=== PATIENT | male | born 1965 | race Caucasian/White ===

== ENCOUNTER 2018-04-29 21:03 | Emergency (ER) | payer OTHER, SELFPAY ==
[2018-04-29 21:10] VITALS: BP 124/76; PULSE 95; RESP 18; TEMP 37.1; O2SAT 96
--- NOTE | 2018-04-29 21:10 | W.ED.GENAD ---
Discharge Plan Disposition Patient Disposition: HOME Condition: Good Discharge Details Chief Complaint: Cellulitis Clinical Impression: Sallie-rectal abscess Primary Care Provider: Osman Gutierrez ED Provider: Pedro Wakefield Meds and New Rx's Prescriptions: New ibuprofen 600 mg tablet 600 mg PO QID PRN (Reason: pain) Qty: 20 RF: 0 amoxicillin-pot clavulanate 875-125 mg tablet 1 tab PO BID Qty: 14 RF: 0 Continue infliximab [Remicade] 100 mg Recon Soln 500 ml IV [id number] RF: 0 Discharge Instructions Instructions: Abscess (ED) Additional Instructions: You may remove the packing tomorrow night in the shower. Take Augmentin as directed. Motrin for pain if needed. May also use Tylenol. Follow-up with Dr. Parker on Tuesday, call Tuesday for appointment. Return to emergency department for worsening pain, swelling, abdominal pain, fever. Referrals: Bear Parker DO [ [facility] STAFF PHYSICIAN] - Medical Decision Making Patient here with 2 days of fever, perirectal pain, perirectal drainage with history of Crohn's and perirectal abscess. Has evidence of large left sided perirectal abscess with possible extension into the anterior medial perineum upper thigh. Digital rectal exam not performed because of discomfort. Abdomen is benign. IV established and fluids and antibiotics started. Declines anything for pain currently. Laboratory studies and CT scan ordered. Patient has a white count of 14.5. Otherwise labs are unremarkable. CT scan shows a large superficial perirectal abscess. Case discussed with Dr. Parker who will see the patient in the ED. Abscess opened in the ED by surgery, Dr. Parker. Packing placed. Patient instructed to take packing out tomorrow night in the shower. Will be started on Augmentin twice a day for a week. Home and follow-up with surgery on Tuesday. Return to ED for any increasing pain, swelling, fever, other concerns. Imaging Data Radiologic Study: Imaging: CT Scan Radiologist's impression: Patient Name: RAMÓN SIERRA #: [id number]: ER Ordering Provider: : [facility] ER Primary Care Provider: Osman Gutierrez Date of Exam: 04/29/18ex: M : 1965Age: 53 Exam(s) EXAM: CT Abdomen and Pelvis With Intravenous Contrast EXAM DATE/TIME: 04/29/2018 9:37 PM CLINICAL HISTORY: 53 years old, male; Screening exam; Other: Evaluate extent of perirectal abscess TECHNIQUE: Axial computed tomography images of the abdomen and pelvis with intravenous contrast. Coronal and sagittal reformatted images were created and reviewed. COMPARISON: No relevant prior studies available. FINDINGS: Lower thorax: Minimal dependent atelectasis. ABDOMEN: Liver: Unremarkable. No acute findings. No suspicious lesions. Gallbladder and bile ducts: Unremarkable. No calcified stones. No concerning ductal dilation. Pancreas: Unremarkable. No ductal dilation. Spleen: Unremarkable. No splenomegaly. No suspicious lesions. Adrenals: Unremarkalbe. No suspicious mass. Kidneys and ureters: 2 mm nonobstructing right renal calculus. Stomach and bowel: Unremarkable. No obstruction or inflammatory changes. Appendix: No evidence of appendicitis. PELVIS: Bladder: Unremarkable as visualized. Reproductive: Unremarkable as visualized. Subperitoneal space: Left perirectal abscess measures 11 x 35 mm transversely. It stays very superficial in the subcutaneous fatty tissues. ABDOMEN and PELVIS: Intraperitoneal space: No free air. No significant fluid collection. Bones/joints: No acute fracture. No dislocation. Soft tissues: Small fat containing umbilical hernia. Vasculature: Unremarkable. No acute findings Lymph nodes: Unremarkable. IMPRESSION: Small left perirectal abscess located just beneath the skin surface. No evidence of any deep extension. Dictated and Authenticated by: Rafi Troncoso MD. Ordering:JOSE HARDING MD Lab Data Lab results reviewed: Yes I reviewed the patient's lab results. HPI General Mode of arrival: ambulatory. Date/Time Provider Initiated Documentation: 04/29/18 21:07. Limitations to Documentation: no limitations. Information obtained by: patient. HPI Narrative: Patient presents to ED with fever and perirectal pain. Patient has history of Crohn's disease with multiple surgeries for perirectal abscess. He started having pain and fever with sweats over the last 2 days. He started to have drainage from the rectal area. He denies any abdominal pain, nausea, vomiting, diarrhea. He is only on Remicade and was due for next dose this coming week. He has waited too long in the past and required multiple surgeries to correct the problem. He decided not to wait this time and came in. Related Data Home Medications Medication Instructions Recorded Confirmed infliximab [Remicade] 500 ml IV [id number] 04/29/18 04/29/18 amoxicillin-pot clavulanate 1 tab PO BID #14 tab 04/30/18 ibuprofen 600 mg PO QID PRN #20 tab 04/30/18 Previous Rx's Medication Instructions Recorded amoxicillin-pot clavulanate 1 tab PO BID #14 tab 04/30/18 ibuprofen 600 mg PO QID PRN #20 tab 04/30/18 Allergies Allergy/AdvReac Type Severity Reaction Status Date / Time No Known Allergies Allergy Unverified 04/29/18 21:21 Review of Systems Constitutional Denies chills, Reports excessive sweating, Denies fatigue, Reports fever(s), Denies headache(s), Denies malaise and Denies weakness Eyes Denies eye discharge and Denies eye pain ENT Denies otalgia, Denies headache(s), Denies neck pain, Denies sinus pressure and Denies sore throat Cardiovascular Denies chest pain, Denies lightheadedness and Denies dyspnea Respiratory Denies cough and Denies dyspnea Gastrointestinal Denies abdominal pain, Denies diarrhea, Denies nausea and Denies vomiting Genitourinary Denies hematuria, Denies dysuria and Denies flank pain Musculoskeletal Denies back pain, Denies myalgias, Denies arthralgias, Denies neck pain and Denies numbness Integumentary/Breasts Denies rash and Reports wounds Neurologic Denies confusion, Denies headache(s), Denies focal weakness, Denies numbness and Denies weakness Psychiatric Denies confusion Endocrine Reports excessive sweating and Denies fatigue PFSH Crohn's disease (regional enteritis) (Chronic) Sallie-rectal abscess (Chronic) H/O drainage of abscess (Chronic) Medical History Crohn's disease (regional enteritis) (Chronic) Sallie-rectal abscess (Chronic) Social History Smoking/Tobacco Use Status: Current every day Surgical History H/O drainage of abscess (Chronic) Social History Smoking/Tobacco Use Status: Current every day Exam Const General: cooperative, healthy appearing, comfortable and not diaphoretic Orientation: alert and oriented x3 HENMT Head: normocephalic and atraumatic Mouth: moist mucous membranes Neck Neck: normal visual inspection, trachea midline and supple Resp Effort & Inspection: normal respiratory effort Auscultation: clear to auscultation bilaterally Cardio Rate: regular rate Rhythm: regular rhythm Heart Sounds: S1 normal and S2 normal GI Inspection: normal to inspection Palpation: soft, not firm, no guarding and nontender Rectal Exam: other (Large left sallie-rectal fluctuant/tender mass, + drainage. Smaller bilateral upper medial thigh/perineal masses/drainage.) Back/Spine/Pelvis Thoracic/Lumbar Spine: thoracic and lumbar spine normal to inspection and thoraco-lumbar ROM normal Skin General skin exam: no erythema Wounds: wounds noted (sallie-rectal drainage/wounds) Neuro General: alert, oriented x3, no focal motor deficits and CN's II-XI intact bilaterally Extrem General: normal to inspection and no clubbing, cyanosis or edema
--- NOTE | 2018-04-29 21:33 | DI.CT_ITS ---
SYMPTOM/DIAGNOSIS: ? EXTENT OF PERIRECTAL ABSCESS ABDOMEN AND PELVIC CT: CT scan of the abdomen and pelvis was performed following the uneventful administration of intravenous contrast material. There are no priors for comparison. Mild dependent atelectatic changes or scarring are seen in the lung bases. No hepatic mass is seen. The gallbladder is negative by CT criteria. There is no biliary ductal dilatation. The portal and superior mesenteric veins are patent. The pancreas, spleen and adrenal glands are unremarkable. The kidneys show normal and symmetric enhancement. No evidence of a solid renal mass or obstruction. There is a 3 mm. non obstructing stone in the mid pole of the right kidney. The urinary bladder is intact. The reproductive organs are unremarkable. The bowel shows no evidence of obstruction or inflammation. No findings to suggest an acute appendicitis are present. The abdominal aorta is of normal caliber. No significant abdominal or pelvic adenopathy, ascites or pneumoperitoneum is seen. Note is made of a small fat containing umbilical hernia. There is a subcutaneous fluid collection in the left perirectal region measuring 1.1 by 3.5 cm. consistent with an abscess. It remains in the superficial soft tissues. Degenerative changes are seen in the spine. IMPRESSION: Small superficial left perirectal abscess. No evidence of deep extension.
[2018-04-29] MEDS: PIPERACILLIN/TAZO 3.375 GM in Normal Saline 50 ML IVPB (21:56)
[2018-04-29] MEDS: Normal Saline Flush 10 ML SYR IVP (21:57)
[2018-04-29 22:09] LABS: Abs Immature Grans 0.04 k/cumm (0.0-0.09); Absolute Basophil Count 0.03 k/cumm (0.0-0.2); Absolute Lymphocyte Count 2.94 k/cumm (1.2-3.4); Absolute Monocyte Count 1.74 k/cumm (0.11-0.7); Basophils % 0.2; Eosinophils % 0.3; HCT 40.9 % (40.0-50.0); HGB 13.8 g/dL (13.5-17.5); Immature Grans % 0.3; Lymphocytes % 20.3; Mean Corp. HGB Concentration 33.7 g/dL (32.0-36.0); Mean Corpuscular Hemoglobin 32.6 pg (27.0-33.0); Mean Corpuscular Volume 96.7 fL (80-95); Mean Platelet Volume 10.2 fL (8.0-11.0); Neutrophils % 66.9; Platelet Count 209 x1000/uL (130-400); RBC 4.23 m/cumm (4.50-6.00); RBC Distribution Width 12.4 % (11.8-14.1); White Blood Cell Count 14.47 k/cumm (4.4-10.8)
[2018-04-29 22:18] LABS: ALT 21 U/L (12-78); AST 14 U/L (15-37); Albumin 3.3 g/dL (3.4-5.0); Alkaline Phosphatase 65 U/L (46-116); Anion Gap 6.8 mmol/L (3-11); BUN 14 mg/dL (7-18); Bilirubin, Total 0.4 mg/dL (0.2-1.0); CO2 27.2 mmol/L (21.0-32.0); CREATININE 0.93 mg/dL (0.70-1.30); Calcium 8.7 mg/dL (8.5-10.1); Chloride 104 mmol/L (98-107); Glucose 113 mg/dL (70-100); Potassium 4.6 mmol/L (3.5-5.1); Sodium 138 mmol/L (136-145); Total Protein 7.6 g/dL (6.4-8.2)
[2018-04-29 22:19] LABS: Absolute Eosinophil Count 0.04 k/cumm (0.0-0.7); Absolute Neutrophil Count 9.68 k/cumm (1.2-6.7)
[2018-04-29] MEDS: Omnipaque 350 MG/ML 100 ML BTL IJ (22:41)
[2018-04-29] MEDS: Lactated Ringers 1,000 ML 150 ML IV (22:46)
--- NOTE | 2018-04-29 23:20 | DI.VRAD_ITS ---
EXAM: CT Abdomen and Pelvis With Intravenous Contrast EXAM DATE/TIME: 04/29/2018 9:37 PM CLINICAL HISTORY: 53 years old, male; Screening exam; Other: Evaluate extent of perirectal abscess TECHNIQUE: Axial computed tomography images of the abdomen and pelvis with intravenous contrast. Coronal and sagittal reformatted images were created and reviewed. COMPARISON: No relevant prior studies available. FINDINGS: Lower thorax: Minimal dependent atelectasis. ABDOMEN: Liver: Unremarkable. No acute findings. No suspicious lesions. Gallbladder and bile ducts: Unremarkable. No calcified stones. No concerning ductal dilation. Pancreas: Unremarkable. No ductal dilation. Spleen: Unremarkable. No splenomegaly. No suspicious lesions. Adrenals: Unremarkalbe. No suspicious mass. Kidneys and ureters: 2 mm nonobstructing right renal calculus. Stomach and bowel: Unremarkable. No obstruction or inflammatory changes. Appendix: No evidence of appendicitis. PELVIS: Bladder: Unremarkable as visualized. Reproductive: Unremarkable as visualized. Subperitoneal space: Left perirectal abscess measures 11 x 35 mm transversely. It stays very superficial in the subcutaneous fatty tissues. ABDOMEN and PELVIS: Intraperitoneal space: No free air. No significant fluid collection. Bones/joints: No acute fracture. No dislocation. Soft tissues: Small fat containing umbilical hernia. Vasculature: Unremarkable. No acute findings Lymph nodes: Unremarkable. IMPRESSION: Small left perirectal abscess located just beneath the skin surface. No evidence of any deep extension. Dictated and Authenticated by: Rafi Troncoso MD. Ordering:JOSE HARDING MD
--- NOTE | 2018-04-30 01:41 | SCONE_ITS ---
Date of service: 04/30/18 Time of Service: 01:34 Assessment and Plan (1) Abscess and cellulitis of gluteal region: Current visit: Yes Status: Acute Recommended incision and drainage of left gluteal abscess under local. Verbal consent was obtained and I&D was performed see procedure note for full details. We will see patient in follow-up. He will finish a course of Augmentin while awaiting culture results for susceptibility. History of Present Illness Narrative: 53-year-old male presents to the emergency room with perianal pain consistent with a perianal abscess. He has a history of Crohn's, and has had multiple perianal abscesses in the past. He started on Remicade about 3 years ago, and this is the first abscesses develop since starting Remicade. CT of the pelvis showed a relatively superficial abscess which is consistent with physical exam. Surgery was consulted for I&D of the abscess. Consults Consult date: 04/30/18 Review of Systems Constitutional Reports system reviewed and no additional complaints, except as docu, Denies chills, Reports fatigue, Reports fever(s) and Reports malaise Gastrointestinal Denies melena, Denies constipation, Denies fecal incontinence, Denies loose stools, Denies nausea and Denies vomiting Endocrine Reports fatigue PFSH Crohn's disease (regional enteritis) (Chronic) Sallie-rectal abscess (Chronic) H/O drainage of abscess (Chronic) Medical History Crohn's disease (regional enteritis) (Chronic) Sallie-rectal abscess (Chronic) Social History Smoking/Tobacco Use Status: Current every day tobacco type: cigarettes alcohol intake: current alcohol intake frequency: a few times a week Alcohol type: beer and hard liquor substance use type: does not use Surgical History H/O drainage of abscess (Chronic) Social History Smoking/Tobacco Use Status: Current every day tobacco type: cigarettes alcohol intake: current alcohol intake frequency: a few times a week Alcohol type: beer and hard liquor substance use type: does not use Exam Const General: cooperative, acute distress mild and anxious Nutritional Appearance: average body habitus and well nourished Orientation: alert, awake and oriented x3 Chest Chest: normal inspection of the chest Resp Effort & Inspection: normal respiratory effort and able to speak in complete sentences Auscultation: clear to auscultation bilaterally Cardio Jugular venous pressure: no JVD Rate: regular rate Rhythm: regular rhythm Heart Sounds: S1 normal and S2 normal GI Inspection: normal to inspection and non-distended Palpation: soft and nontender Rectal Exam: visual inspection abnormal other (erythema, induration, and fluctuance of the left buttock. Tender to palpation) Skin Lesions: lesion noted (Left buttock as described above) Neuro General: moves all extremities, no focal motor deficits and CN's II-XI intact bilaterally Extrem General: normal capillary refill and no clubbing, cyanosis or edema Psych Appearance: grossly normal Mental Status: mental status grossly normal Judgment: judgment good Results Last Vital Signs Temp 37.1 C 04/29/18 21:10 Pulse 95 H 04/29/18 21:10 Resp 18 04/29/18 21:10 BP 124/76 04/29/18 21:10 Pulse Ox 96 04/29/18 21:10 Labs : 04/29/18 21:50 04/29/18 21:50 Laboratory Results - last 24 hr 04/29/18 04/29/18 21:50 21:50 WBC 14.47 H RBC 4.23 L Hgb 13.8 Hct 40.9 MCV 96.7 H MCH 32.6 MCHC 33.7 RDW 12.4 Plt Count 209 MPV 10.2 Immature Gran % 0.3 Neutrophils % 66.9 Lymphocytes % 20.3 Monocytes % 12.0 Eosinophils % 0.3 Basophils % 0.2 Absolute Neutrophils 9.68 H Absolute Lymphocytes 2.94 Absolute Monocytes 1.74 H Absolute Eosinophils 0.04 Absolute Basophils 0.03 Sodium 138 Potassium 4.6 Chloride 104 Carbon Dioxide 27.2 Anion Gap 6.8 BUN 14 Creatinine 0.93 Estimated GFR/1.73 m2 >= 60.00 Glucose 113 H Calcium 8.7 Total Bilirubin 0.4 AST 14 L ALT 21 Alkaline Phosphatase 65 Total Protein 7.6 Albumin 3.[address] scan - pelvis: image reviewed Imaging Studies: CT Abdomen and Pelvis With Intravenous Contrast EXAM DATE/TIME: 04/29/2018 9:37 PM CLINICAL HISTORY: 53 years old, male; Screening exam; Other: Evaluate extent of perirectal abscess TECHNIQUE: Axial computed tomography images of the abdomen and pelvis with intravenous contrast. Coronal and sagittal reformatted images were created and reviewed. COMPARISON: No relevant prior studies available. FINDINGS: Lower thorax: Minimal dependent atelectasis. ABDOMEN: Liver: Unremarkable. No acute findings. No suspicious lesions. Gallbladder and bile ducts: Unremarkable. No calcified stones. No concerning ductal dilation. Pancreas: Unremarkable. No ductal dilation. Spleen: Unremarkable. No splenomegaly. No suspicious lesions. Adrenals: Unremarkalbe. No suspicious mass. Kidneys and ureters: 2 mm nonobstructing right renal calculus. Stomach and bowel: Unremarkable. No obstruction or inflammatory changes. Appendix: No evidence of appendicitis. PELVIS: Bladder: Unremarkable as visualized. Reproductive: Unremarkable as visualized. Subperitoneal space: Left perirectal abscess measures 11 x 35 mm transversely. It stays very superficial in the subcutaneous fatty tissues. ABDOMEN and PELVIS: Intraperitoneal space: No free air. No significant fluid collection. Bones/joints: No acute fracture. No dislocation. Soft tissues: Small fat containing umbilical hernia. Vasculature: Unremarkable. No acute findings Lymph nodes: Unremarkable. IMPRESSION: Small left perirectal abscess located just beneath the skin surface. No evidence of any deep extension. Procedures Other Procedure Description/Findings: Preoperative diagnosis: Perianal abscess Postoperative diagnosis: Left gluteal abscess Procedure: Incision and drainage of left gluteal abscess Surgeon: Bear Kay DO Anesthesia: Local 1% lidocaine Estimated blood loss: 1 ml Specimen: Culture swabs left gluteal abscess Procedure: After obtaining verbal consent, the area was prepped, and a field block of 1% lidocaine was infiltrated over the center of the abscess at the most fluctuant point. A 2 cm stab incision was made in the area of fluctuance. Immediate outpouring of purulent fluid was noted, gentle pressure was applied to express more purulent fluid. A total of about 100-120 mL was drained from the wound. A short wick of quarter inch iodoform gauze was placed in the wound , and this was covered with dry sterile dressings. The patient tolerated the procedure with some mild discomfort, but overall did well. There are no complications.
[2018-04-30] MEDS: Ketorolac 30 MG/ML VIAL IVP (01:48)
[2018-04-30] MEDS: Normal Saline Flush 10 ML SYR IVP (01:49)
[2018-04-30 01:57] VITALS: BP 124/76; PULSE 95; RESP 18; O2SAT 96
== END 2018-04-30 01:56 | disposition home or self-care (01) ==
PROVIDERS: Emergency Provider Emergency Medicine
DX: K61.1 Rectal abscess (principal); K50.90 Crohn's disease, unspecified, without complications; L02.31 Cutaneous abscess of buttock
CPT/HCPCS: 10061; 36415; 80053; 96361; 96365; 96375; 99253; 99285; 74177; 85025; 99284; J1885; J2543; J3490

== ENCOUNTER 2019-12-20 21:59 | Inpatient (IN) | payer OTHER, SELFPAY ==
[2019-12-20 22:01] VITALS: BP 156/92; PULSE 87; RESP 20; TEMP 36.9; O2SAT 97
--- NOTE | 2019-12-20 22:12 | ED.GENADUL_ITS ---
Discharge Plan Disposition Patient Disposition: [facility] INPATIENT Condition: Fair Discharge Details Chief Complaint: Cellulitis Clinical Impression: Abscess and cellulitis of gluteal region Primary Care Provider: Rafat Tellez ED Provider: Pedro Wakefield Meds and New Rx's Prescriptions: No Action ibuprofen 600 mg tablet 600 mg PO QID PRN (Reason: pain) Qty: 20 RF: 0 Medical Decision Making Patient with recurrent perirectal abscess. He also has tenderness, erythema extending in the perineal area to the base of the scrotum. Does not appear to have scrotal involvement. Previous abscess was drained in ED in 2018. However, next day patient ended up going to the OR at [facility] for extensive I&D. Given the amount of scar tissue present, the long history of abscesses and fistulous, as well as extension of erythema and tenderness towards the base of the scrotum will get pelvic CT with IV contrast. IV established laboratory studies sent. Toradol and Unasyn given. Patient with elevated WBC to 13.9. Chemistries are fine. Urinalysis with moderate blood and small leukocyte esterase on dip, 5-10 white cells and 5-[address] scan shows a 10.6 x 1.1 cm elongated fluid collection along the right perirectal/gluteal region. Case discussed with surgery, Dr. Livingston. Recommend patient be transferred to [facility]. Patient declines and wishes to stay here. No beds available tonight but patient will be held in ED and kept n.p.o. with fluids running. Unasyn 3 g IV every [address] Livingston to see in ED in morning for plan to go to the OR. Medical Records Medical records reviewed: Yes I reviewed the patient's medical records. Lab Data Lab results reviewed: Yes I reviewed the patient's lab results. HPI General Mode of arrival: ambulatory . Date/Time Provider Initiated Documentation: 12/20/19 22:02 . Limitations to Documentation: no limitations . Information obtained by: patient, RN notes reviewed and old records reviewed . HPI Narrative: Patient presents to ED with perirectal pain and swelling. Has a long history of perirectal and perianal abscesses secondary to Crohn's disease. Last 1 requiring drainage eventually in the OR was April 2018. He is now off Remicade for the last 6 months. 2 days ago began to have pain. Now unable to sit or even really walk. Having sweats but not sure if he is having fevers. No shaking chills. No abdominal pain. No difficulty urinating or complaints. Related Data Home Medications Medication Instructions Recorded Confirmed ibuprofen 600 mg PO QID PRN #20 tab 04/30/18 12/20/19 Previous Rx's Medication Instructions Recorded ibuprofen 600 mg PO QID PRN #20 tab 04/30/18 Allergies Allergy/AdvReac Type Severity Reaction Status Date / Time No Known Allergies Allergy Unverified 12/20/19 22:05 General Stated Complaint: Cellulitis FLORA: 3 Review of Systems Narrative: 03/12 Review of Systems completed and is negative except as stated above in HPI (Systems reviewed: Const, Eyes, ENT, Resp, CV, GI, , MSK, Skin, Neuro) PFSH Medical History Crohn's disease (regional enteritis) (Chronic) Sallie-rectal abscess (Chronic) Surgical History H/O drainage of abscess (Chronic) Social History Smoking/Tobacco Use Status: Current every day Tobacco Type: cigarettes Smoking packs per day: 1 Smoking cigarettes per day: 20.0 Alcohol Intake: current Alcohol Intake frequency: a few times a week Alcohol type: beer and hard liquor Drug use: Never Substance use type: does not use Do you feel safe in your relationship?: Yes Exam Narrative Exam Narrative: Vitals: Afebrile here. Hypertensive otherwise normal vitals normal room air p ulse ox. Const: WDWN male in NAD. HEENT: NC/AT. Normal facial exam. Eyes: Normal conjunctiva and sclera. Neck: Supple. Trachea midline. Lungs: Normal respiratory effort. Cor: RRR with good radial pulses. GI: Soft. NT/ND. No guarding or rebound. : Significant scar tissue in the perirectal and perineal area. Swelling, tenderness, fluctuance in the right perirectal region with erythema and tenderness extending up to the scrotum. No scrotal erythema or tenderness. Small opening with slight drainage in the perirectal area. Neuro: A+O x 3. Normal speech, mentation, gait. Cranial nerves II - XII grossly intact. No gross motor or sensory deficit. Ext: No C/C/E. Skin: Warm and dry without rash. Course Vital Signs Vital signs: Vital Signs Temperature 98.5 F 12/20/19 22:01 Pulse 87 12/20/19 22:01 Respiratory Rate 20 12/20/19 22:01 Blood Pressure 156/92 H 12/20/19 22:01 Pulse Oximetry 97 12/20/19 22:01 Temperature 98.5 F 12/20/19 22:01 Temperature Source Oral 12/20/19 22:01 Pulse 87 12/20/19 22:01 Respiratory Rate 20 12/20/19 22:01 Respiratory Effort Non-Labored 12/20/19 22:05 Blood Pressure 156/92 H 12/20/19 22:01 Blood Pressure Position Sitting 12/20/19 22:01 Pulse Oximetry 97 12/20/19 22:01 Oxygen Delivery Method Room Air 12/20/19 22:01 Oxygen Flow Rate 0 12/20/19 22:01 Pain Level 6 12/20/19 22:01
[2019-12-20] MEDS: Ketorolac 30 MG/ML VIAL IVP (22:38)
[2019-12-20] MEDS: Normal Saline Flush 10 ML SYR IVP ×2 (22:39→23:36)
[2019-12-20] MEDS: Lactated Ringers 1,000 ML 1000 ML IV (22:39)
[2019-12-20 23:00] LABS: HCT 41.1 % (40.0-50.0); HGB 13.9 g/dL (13.5-17.5); Mean Corp. HGB Concentration 33.8 g/dL (32.0-36.0); Mean Corpuscular Hemoglobin 31.7 pg (27.0-33.0); Mean Corpuscular Volume 93.8 fL (80-95); Platelet Count 246 x1000/uL (130-400); RBC 4.38 m/cumm (4.50-6.00); RBC Distribution Width 12.7 % (11.8-14.1); White Blood Cell Count 13.92 k/cumm (4.4-10.8)
[2019-12-20 23:01] LABS: Anion Gap 8.5 mmol/L (3-11); BUN 22 mg/dL (7-18); CO2 27.5 mmol/L (21.0-32.0); Calcium 8.7 mg/dL (8.5-10.1); Chloride 104 mmol/L (98-107); Glucose 133 mg/dL (74-106); Sodium 140 mmol/L (136-145)
[2019-12-20 23:12] LABS: Absolute Eosinophil Count 0.28 k/cumm (0.0-0.7); Absolute Lymphocyte Count 1.81 k/cumm (1.2-3.4); Absolute Monocyte Count 1.81 k/cumm (0.11-0.7); Absolute Neutrophil Count 10.16 k/cumm (1.2-6.7); Atypical Lymphocytes % 1; Diff Comment Manual Differential
[2019-12-20 23:13] LABS: RBC Morphology Normal
[2019-12-20 23:19] LABS: Bilirubin Negative (Negative); Blood Moderate (Negative); Clarity Clear (Clear); Glucose Negative (Negative); Ketones Negative (Negative); Leukocyte Esterase Small (Negative); Nitrite Negative (Negative); Specific Gravity >= 1.030 (1.005-1.025); Urobilinogen 0.2 EU/dL (Up TO 0.2); pH 6.5 (5-8)
[2019-12-20 23:25] LABS: Bacteria Moderate HPF (Negative); Epithelial Cells Few HPF (Negative)
[2019-12-20 23:26] LABS: C & S Indicated? Yes; Casts Negative LPF (Negative); Crystals Negative HPF (Negative); Mucus Negative (Negative)
--- NOTE | 2019-12-20 23:30 | DI.CT_ITS ---
EXAM: CT PELVIC W CLINICAL HISTORY: perianal abscess tracking to scrotum TECHNIQUE: Imaging Protocol: Axial computed tomography images with coronal and sagittal reformatted images were created and reviewed CONTRAST MATERIAL: Intravenous: Omnipaque 350 Contrast volume:100 mL Oral: No FINDINGS: PELVIS: Abdominal Aorta: The visualized abdominal aorta and its runoff are nondilated. Atherosclerosis. Bowel: No obstruction or bowel wall thickening. No evidence of acute appendicitis. Peritoneal Cavity: No ascites, collection or mesenteric inflammatory response. Soft Tissues: There is a rim enhancing fluid collection in the right perirectal gluteal region measur ing 10.6 x 1.1 cm. There is adjacent prominent soft tissue stranding noted. Small fat containing um bilical hernia. Bladder: Incompletely distended. No gross abnormality. Reproductive Organs: Enlarged prostate gland. Lymph Nodes: Mildly prominent bilateral inguinal lymph nodes which may be reactive. Bones: Degenerative changes. IMPRESSION: Elongated rim enhancing fluid collection in the right perirectal/gluteal region measuring 10.6 x 1.1 cm. There is associated soft tissue swelling. The findings are most consistent with an abscess. RADIATION DOSE DELIVERED: Total DLP Total DLP DATA REPOSITORY: All CT scans at this facility are submitted to the National Radiology Data Registry (NRDR) Dose Index Registry (DIR) with the [employer] (ACR). RADIATION OPTIMIZATION: All CT scans at this facility use at least one of these dose optimization te chniques: automated exposure control; mA and/or kV adjustment per patient size (includes targeted exa ms where dose is matched to clinical indication); or iterative reconstruction.
[2019-12-20] MEDS: AMPICILLIN/SULBACTAM 3 GM in Normal Saline 100 ML IVPB (23:32)
[2019-12-20] MEDS: Omnipaque 350 MG/ML 100 ML BTL IJ (23:37)
[2019-12-20] MEDS: Normal Saline - Diluent 50 ML VIAL IV (23:37)
[2019-12-21] VITALS (9 sets, daily range): BP systolic 109–147; BP diastolic 71–90; PULSE 53–79; RESP 14–20; TEMP 35.4–36.8; O2SAT 94–98
--- NOTE | 2019-12-21 00:14 | DI.VRAD_ITS ---
PROCEDURE INFORMATION: Exam: CT Pelvis With Contrast Exam date and time: 12/20/2019 11:20 PM Age: 54 years old Clinical indication: Prior surgery; Surgery date: 6+ months; Patient HX: Perianal abscess tracking to scrotum, HX crohns/perirectal and groin abscess TECHNIQUE: Imaging protocol: Computed tomography images of the pelvis with intravenous contrast. Radiation optimization: All CT scans at this facility use at least one of these dose optimization techniques: automated exposure control; mA and/or kV adjustment per patient size (includes targeted exams where dose is matched to clinical indication); or iterative reconstruction. Contrast material: [id number]; Contrast volume: 100 ml; Contrast route: INTRAVENOUS (IV); COMPARISON: CT Private^ROUTINE ABDOMEN PELVIS WITH CONTRAST (Adult) 04/29/2018 10:22 PM FINDINGS: Bowel: Nonobstructive visualized bowel. No inflammatory changes of the visualized bowel. Appendix: No evidence of appendicitis. Intraperitoneal space: Unremarkable. No free air. No significant fluid collection. Vasculature: Scattered vascular calcifications. Lymph nodes: Prominent bilateral inguinal nodes are nonspecific and may be reactive. Bladder: Bladder under distended and poorly evaluated. Reproductive: Enlarged prostate. Bones/joints: Scattered bony degenerative changes. Soft tissues: Small fat containing umbilical hernia without evidence of acute complication. Small fat containing bilateral inguinal hernias. There is an elongated rim enhancing fluid collection along the right perirectal/gluteal region measuring approximately 10.6 by 1.1 cm . Prominent adjacent soft tissue stranding is present. See image 57 series 2 IMPRESSION: Elongated abscess along the right perirectal/gluteal region measuring up to 10.6 cm with prominent adjacent soft tissue stranding. Dictated and Authenticated by: Rafi Coleman MD. Ordering:JOSE Vasquez MD
[2019-12-21] MEDS: ACETAMINOPHEN 1,000 MG/100 ML BTL 400 MG IVPB ×3 (01:12→14:08)
[2019-12-21] MEDS: Lactated Ringers 1,000 ML 125 ML IV (01:32)
[2019-12-21] MEDS: AMPICILLIN/SULBACTAM 3 GM in Normal Saline 100 ML IVPB ×3 (05:31→18:07)
[2019-12-21] MEDS: Ketorolac 15 MG/ML VIAL IVP (07:27)
--- NOTE | 2019-12-21 08:02 | W.PM.HP.N ---
Date of service: 12/21/19 Time of Service: 08:02 Assessment and Plan Assessment and plan (1) Smoker: Status: Acute (2) Crohn's disease (regional enteritis): Status: Chronic Assessment and plan: pt has had mult abscesses in the past. He has been on his immunomodulating medication for 6m. He stopped b/c of side effects- joint pain. Prior to starting the med- he was having mult abscesses a year. He has not had one since he was on the med- at least a year. He denies any trauma or unusual activity. Will start on abx/steriods/flagyl CT reviewed plan simple OR drainage Pt adamantly refuses to go to [facility] to see CR Sx. If he has complications or does not heal- will need to f/u w/ CR. D/w pt and importance of F/u w/ GI. There are other meds he can be on including Glo. He needs to be on immunomodulating medication. He still is continent. He has not had diarrhea or rectal bleeding. He is not septic. He has had no problems with anesthesia in the past Risks of surgery include bleeding infection pneumonia blood clots complications of anesthesia damage to sphincters including loss of control or stenosis. Risks include nonhealing and further fistula formation. If he develops any complications he is going to have to go down to [facility] and see colorectal surgery he needs to take his steroids. He needs to stay on Flagyl. Which means no alcohol. (3) Abscess and cellulitis of gluteal region: Status: Acute History of Present Illness Consults Consult date: 12/21/19 Requesting physician: Pedro Wakefield Narrative: <del></del> <del>Jacklyn</del> <del>is</del> <del>a</del> <del>54-year-old</del> <del>male</del> <del>presents</del> <del>to</del> <del>the</del> <del>ER</del> <del>with</del> <del>a</del> <del>perirectal</del> <del>abscess.</del> <del>He</del> <del>has</del> <del>longstanding</del> <del>history</del> <del>of</del> <del>Crohn's.</del> <del>He</del> <del>is</del> <del>been</del> <del>seen</del> <del>here</del> <del>and</del> <del>at</del> <del>[facility].</del> <del>He</del> <del>has</del> <del>had</del> <del>Crohn's</del> <del>for</del> <del>20</del> <del>years.</del> <del>He</del> <del>is</del> <del>supposed</del> <del>to</del> <del>be</del> <del>on</del> <del>an</del> <del>immunomodulating</del> <del>medication.</del> <del>He</del> <del>did</del> <del>not</del> <del>like</del> <del>the</del> <del>side</del> <del>effects</del> <del>and</del> <del>took</del> <del>himself</del> <del>off</del> <del>this</del> <del>medication.</del> <del>He</del> <del>is</del> <del>not</del> <del>currently</del> <del>on</del> <del>any</del> <del>medication</del> <del>for</del> <del>his</del> <del>Crohn's.</del> <del>He</del> <del>is</del> <del>not</del> <del>taking</del> <del>anything</del> <del>for</del> <del>the</del> <del>last</del> <del>6</del> <del>months.</del> <del>Patient</del> <del>has</del> <del>a</del> <del>recurrent</del> <del>perirectal</del> <del>abscess.</del> <del>He</del> <del>it</del> <del>has</del> <del>been</del> <del>ongoing</del> <del>for</del> <del>quite</del> <del>some</del> <del>time.</del> <del>He</del> <del>only</del> <del>came</del> <del>into</del> <del>the</del> <del>ER</del> <del>because</del> <del>his</del> <del></del> <del>made</del> <del>him</del> <del>come</del> <del>in</del> <del>to</del> <del>the</del> <del>ER.</del> <del>The</del> <del>patient's</del> <del>surgeon</del> <del>that</del> <del>he</del> <del>likes</del> <del>at</del> <del>[facility]</del> <del>is</del> <del>no</del> <del>longer</del> <del>there</del> <del>and</del> <del>he</del> <del>is</del> <del>refusing</del> <del>to</del> <del>go</del> <del>down</del> <del>to</del> <del>[place].</del> <del>He</del> <del>denies</del> <del>any</del> <del>fever</del> <del>or</del> <del>chills.</del> <del>He</del> <del>has</del> <del>not</del> <del>been</del> <del>having</del> <del>any</del> <del>diarrhea.</del> <del>His</del> <del>stools</del> <del>are</del> <del>formed.</del> <del>He</del> <del>has</del> <del>no</del> <del>problems</del> <del>with</del> <del>control.</del> <del>He</del> <del>is</del> <del>not</del> <del>had</del> <del>any</del> <del>bleeding.</del> <del>He</del> <del>has</del> <del>no</del> <del>nausea</del> <del>vomiting.</del> <del>Patient</del> <del>states</del> <del>he</del> <del>has</del> <del>been</del> <del>a</del> <del>lot</del> <del>sicker</del> <del>than</del> <del>this</del> <del>in</del> <del>the</del> <del>past.</del> <del>He</del> <del>has</del> <del>not</del> <del>had</del> <del>a</del> <del>heart</del> <del>attack</del> <del>or</del> <del>stroke.</del> <del>He</del> <del>denies</del> <del>diabetes</del> <del>mellitus.</del> <del>He</del> <del>is</del> <del>not</del> <del>been</del> <del>on</del> <del>steroids.</del> <del>He</del> <del>is</del> <del>a</del> <del>smoker.</del> <del>He</del> <del>denies</del> <del>any</del> <del>productive</del> <del>cough.</del> <del>He</del> <del>denies</del> <del>any</del> <del>fever</del> <del>or</del> <del>chills.</del> <del>It</del> <del>is</del> <del>a</del> <del>computer</del> <del>error</del> <del>that</del> <del>there</del> <del>is</del> <del>a</del> <del>strike</del> <del>out</del> <del>throughout</del> <del>the</del> <del>above</del> <del>type.</del> <del>All</del> <del>this</del> <del>is</del> <del>relevant</del> <del>documentation</del> <del>and</del> <del>should</del> <del>not</del> <del>have</del> <del>strikethrough.</del> Review of Systems All systems reviewed & are unremarkable except as noted in HPI and below PFSH Medical History Crohn's disease (regional enteritis) (Chronic) Sallie-rectal abscess (Chronic) Surgical History H/O drainage of abscess (Chronic) Social History Smoking/Tobacco Use Status: Current every day Tobacco Type: cigarettes Smoking packs per day: 1 Smoking cigarettes per day: 20.0 Alcohol Intake: current Alcohol Intake frequency: a few times a week Alcohol type: beer and hard liquor Drug use: Never Substance use type: does not use Do you feel safe in your relationship?: Yes Meds Home Medications and Allergies Home Medications Medication Instructions Recorded Confirmed Type ibuprofen 600 mg PO QID PRN #20 tab 04/30/18 12/20/19 Rx amoxicillin-pot clavulanate 1 tab PO BID 5 Days #10 tab 12/21/19 Rx [Augmentin] ibuprofen 600 mg PO Q6H PRN #60 tab 12/21/19 Rx metronidazole [Flagyl] 500 mg PO TID 14 Days #42 tab 12/21/19 Rx oxycodone 5 mg PO Q4H PRN #10 cap 12/21/19 Rx prednisone 1 mg PO BID 7 Days #14 tab 12/21/19 Rx prednisone 5 mg PO TID 7 Days #21 tab 12/21/19 Rx prednisone 10 mg PO TID 7 Days #21 tab 12/21/19 Rx prednisone 20 mg PO BID 7 Days #14 tab 12/21/19 Rx sennosides-docusate sodium [Senna 1 tab-cap PO BID #30 tab 12/21/19 Rx Plus] Allergies Allergy/AdvReac Type Severity Reaction Status Date / Time No Known Allergies Allergy Unverified 12/20/19 22:05 Exam HENMT Other: No jaundice. No dental abscesses. No loose teeth. Resp Effort & Inspection: normal respiratory effort and able to speak in complete sentences Auscultation: clear to auscultation bilaterally Cardio Rate: regular rate Rhythm: regular rhythm GI Palpation: soft, nontender and No ascites Auscultation: normal bowel sounds Other: rectum. mult lg scars. abscess at 4 oclock position- red swollen tender. Results Labs Result diagrams: 12/20/19 22:35 12/20/19 22:35 Labs: Laboratory Results - last 24 hr 12/20/19 12/20/19 12/20/19 22:35 22:35 23:10 WBC 13.92 H RBC 4.38 L Hgb 13.9 Hct 41.1 MCV 93.8 MCH 31.7 MCHC 33.8 RDW 12.7 Plt Count 246 MPV 10.0 Immature Gran % 0.0 Neutrophils % 73.0 Lymphocytes % 12.0 Atypical Lymphs % 1 Monocytes % 13.0 Eosinophils % 2.0 Basophils % 0.0 Absolute Neutrophils 10.16 H Absolute Lymphocytes 1.81 Absolute Monocytes 1.81 H Absolute Eosinophils 0.28 Absolute Basophils 0.00 Differential Comment Manual differential RBC Morphology Normal Sodium 140 Potassium 4.0 Chloride 104 Carbon Dioxide 27.5 Anion Gap 8.5 BUN 22 H Creatinine 1.10 Estimated GFR/1.73 m2 >= 60.00 Glucose 133 H Calcium 8.7 Urine Color Yellow Urine Clarity Clear Urine pH 6.5 Ur Specific [place] >= 1.030 H Urine Protein Negative Urine Ketones Negative Urine Blood Moderate H Urine Nitrite Negative Urine Bilirubin Negative Urine Urobilinogen 0.2 Ur Leukocyte Esterase Small H Urine RBC 5-10 H Urine WBC 5-10 Ur Epithelial Cells Few Urine Crystals Negative Urine Bacteria Moderate Urine Casts Negative Urine Mucus Negative Ur Culture Indicated? Yes Urine Glucose Negative Last Vital Signs Temp 36.8 C 12/21/19 07:11 Pulse 79 12/21/19 07:11 Resp 14 12/21/19 07:11 BP 117/74 12/21/19 07:11 Pulse Ox 98 12/21/19 07:11 COVID-19 Screening Have you,or household,traveled outside [place] in last 14 days?: Yes Recent travel in the [facility] within the last 14 days?: No Recent out of the country travel within the last 14 days?: No Exposure or possible exposure to illness during travel?: No Had IN PERSON contact w/suspected or confirmed C-19 person: No Have you had the following symptoms in the past few days?: No Medical treatment received for symptoms/illness related to travel?: 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 He does not come into contact with other people. He is only going to [facility] and not to [place] or any large cities.
[2019-12-21] MEDS: Hydrocortisone SOD SUC. 100 MG VIAL IVP ×2 (08:34→16:10)
[2019-12-21] MEDS: metroNIDAZOLE 500 MG/100 ML BAG 100 MG IVPB ×2 (08:35→16:09)
[2019-12-21] MEDS: Normal Saline 1,000 ML 125 ML IV ×2 (08:35→16:25)
[2019-12-21] MEDS: Normal Saline Flush 10 ML SYR IVP ×2 (16:10→18:10)
[2019-12-21] MEDS: Bupivacaine LIPOSOME/PF 133 MG/10 ML VIAL IJ (17:05)
[2019-12-21] MEDS: Bupivacaine 0.5% Pres-Free 30 ML VIAL (17:05)
--- NOTE | 2019-12-21 17:51 | W.PM.OP ---
Date of service: 12/21/19 Time of Service: 17:52 Operative Note Operative Note DATE OF PROCEDURE: 12/21/19 PRE-OP DIAGNOSIS: crohn's dx perianal abscess POST-OP DIAGNOSIS: same SURGEON: Sheyla Livingston RESIDENTIAL MORTGAGE MANAGER: Ingrid Mejia ANESTHESIA: MAC ESTIMATED BLOOD LOSS: 3 PATHOLOGY: none sent COMPLICATIONS: None Patient was transported to: PACU Patient's condition: stable Procedure Description: Patient is a 54-year-old white male who has a longstanding history of Crohn's disease and perianal/perirectal disease. He has developed another perianal abscess. He is refusing to go down to colorectal [facility] and just wants to take care of locally. We discussed risks versus benefits. I am only going to do a simple incision and drainage today if there is any involvement with the sphincters or extensive complication is going to have to go back down to colorectal surgery at [facility]. Informed consent is obtained explaining risks and benefits of the procedure including but not limited to bleeding infection pneumonia blood clots. Complications from anesthesia. Damage to the sphincters resulting in incontinence or stenosis. Nonhealing. And other complications from his Crohn's disease. Patient is brought to the surgical suite. He is placed in the prone position. Anesthesia is administered per the department of anesthesia. The patient is prepped and draped in the usual sterile fashion using a Betadine scrub solution. A timeout is performed. 20 cc of Exparel and Marcaine is used to anesthetize the area. Is at the 4 o'clock position in reverse anatomical position. A small skin james is made with a #15 blade probe was inserted extends down approximately 8 cm it does extend over to the sphincters and is approximately 4 cm by but it is relatively superficial and already extends down about 2 cm it is irrigated and packed. There was purulent drainage-20cc. He can remove the packing in the a.m. and do sitz bath's and will need to do repacking for couple days. He will be discharged home. He was given instructions in doing packing and dressing changes. He and his are familiar with doing this. He is not currently on any medications for his Crohn's. He was on an immunomodulator and was stopped because he did not like the side effects. He has not seen his GI doctor in 6 months. I did start him on a tapering dose of steroids. He needs to go see his GI doctor. I will see him back in the office week in follow-up. If there are any complications or any nonhealing he is going to have to go back down and see colorectal at [facility].
--- NOTE | 2019-12-21 17:54 | DSE_ITS ---
Date of service: 12/21/19 Time of Service: 18:51 DS: Diagnosis Discharge Diagnosis (1) Abscess and cellulitis of gluteal region: Status: Acute (2) Smoker: Status: Acute Discharge Plan Disposition Patient Disposition: HOME Condition: Fair Discharge Details Chief Complaint: Cellulitis Clinical Impression: Abscess and cellulitis of gluteal region Reason For Visit: PERIRECTAL ABSCESS Admit Date/Time: 12/21/19 07:54 Admit Provider: Sheyla Livingston Attending Provider: Sheyla Livingston Primary Care Provider: Rafat Tellez ED Provider: Pedro Wakefield Keeler Meds and New Rx's Prescriptions: New amoxicillin-pot clavulanate [Augmentin] 875-125 mg tablet 1 tab PO BID 5 Days Qty: 10 RF: 0 metronidazole [Flagyl] 500 mg tablet 500 mg PO TID 14 Days Qty: 42 RF: 0 prednisone 20 mg tablet 20 mg PO BID 7 Days Qty: 14 RF: 0 prednisone 10 mg tablet 10 mg PO TID 7 Days Qty: 21 RF: 0 prednisone 5 mg tablet 5 mg PO TID 7 Days Qty: 21 RF: 0 prednisone 1 mg tablet 1 mg PO BID 7 Days Qty: 14 RF: 0 oxycodone 5 mg capsule 5 mg PO Q4H PRNQty: 10 RF: 0 ibuprofen 600 mg tablet 600 mg PO Q6H PRNQty: 60 RF: 3 sennosides-docusate sodium [Senna Plus] 8.6-50 mg tablet 1 tab-cap PO BID Qty: 30 RF: 3 Continued ibuprofen 600 mg tablet 600 mg PO QID PRN (Reason: pain) Qty: 20 RF: 0 Discharge Instructions Additional Instructions: Your health care provider has covered your wound with a wet-to-dry dressing. With this type of dressing, a wet (or moist) gauze dressing is put on your wound and allowed to dry. Wound drainage and tissue can be removed when you take off the old dressing. Follow any instructions you are given on how to change the dressing. Use this sheet as a reminder. What to Expect at Home Your provider will tell you how often you should change your dressing at home. As the wound heals, you should not need as much gauze or packing gauze. Removing the Old Dressing Follow these steps to remove your dressing: ? Wash your hands thoroughly with soap and warm water before and after each dressing change. Remove the old dressing. If it is sticking to your skin, wet it with warm water to loosen it. ? Remove the gauze pads or packing tape from inside your wound. Changing Your Dressing Follow these steps to put a new dressing on: ? Place the gauze pads or packing tape in your wound. Carefully fill in the wound and any spaces under the skin. Use a cotton tip applicator to gently push the packing material into the wound. ? Cover the wet gauze or packing tape with a large dry dressing pad. Use tape or rolled gauze to hold this dressing in place. ? Wash your hands again when you are finished. When to Call the Doctor Call your doctor if you have any of these changes around your wound: ? Worsening redness ? More pain ? Swelling ? Bleeding ? It is larger or deeper ? It looks dried out or dark ? The drainage is increasing ? The drainage has a bad smell Also call your doctor if: ? Your temperature is 100.5?F (38?C), or higher, for more than 4 hours ? Drainage is coming from or around the wound ? Drainage is not decreasing after 3 to 5 days ? Drainage is increasing ? Drainage becomes thick, johnson, yellow, or smells bad Home Care Instructions after Rectal Surgery Pain/muscle spasms are normal after surgery. It takes oral pain meds an hour to take effect. Do not get behind on your pain meds. You can alternate with NSAID?s (ibuprofen 400-600mg) every 8 hours. Take with food; do not take if you have ulcers or sensitivity to aspirin. Constipation occurs with the use of narcotic pain medications. The first bowel movement after surgery will be painful. Do not let yourself get constipated. Stay on a stool softener while you are on the narcotics. It is recommended that you use a fiber supplement (Metamucil, Citrucel) daily (1 tablespoon in 8 oz of water). If you do not have a bowel movement daily, use Milk of Magnesia or Miralax. It is normal to have bleeding or drainage after rectal surgery; especially when you move your bowels. Use a sanitary napkin to collect the discharge. If you are passing large clots or having to change the pad more than every 4 hours, call the clinic or go to the ER. You may experience spasms in the rectal muscles. This is normal after surgery and last for about two weeks. They can become more intense with bowel movements. You can use the valium as a muscle relaxant (do not take at the same time as the pain medications). You can also try sitz bathes (sitting in a bath tub of PLAIN lukewarm water; soap can add to rectal irritation). Or you can try ice packs. You will have to see what works best for you. It is ok to shower. Avoid soap on the surgical area. Use a pillow to sit on. Follow a mild bland diet. Avoid alcohol, spicy food, citrus, and tomatoes. Avoid strenuous activity (running, jogging, and power walking, swimming, weight lifting) for two weeks. No lifting over 5 pounds for [address] if taking pain medications, or cannot turn or twist your body without hesitation. You can return to work when you are no longer taking the pain meds, can sit comfortably for 8 hours or when the weight restrictions are lifted. Urinary retention is common. Sit in a warm tub to try to relax the bladder. If you are unable to urinate after 8 hours, call the office or go to the ER. -No need to remove the packing on Tuesday morning. Get in a tub applying warm water and soak for 10 or 15 minutes. Remove the packing. Then replace with new packing. See additional instructions. Follow up in clinic on Tuesday. Our clinic will call on Tuesday w/ a time. [phone] prednisone: 20mg po BID x 7days 10mg po TID x 7days 5mg po TID x 7 days 1mg po TID x 7days Augmentin po BID x 5 days Flagyl po TID x 2 wks. do not drink alcohol while taking this medication! -Yogurt daily while on antibiotics Stand Alone Forms: Nursing Discharge Form Activity:: Remove packing in a.m. See instructions above. Sitz bath as needed for pain and muscle spasms Equipment/Supplies:: No Equipment Needed Diet:: As Tolerated Discharge Orders Discharge Orders: Discharge Order (Routine); Ordered 12/21/19 Ordered By: Sheyla Livingston DS: Summary Status at Discharge Functional status at discharge: independent ambulation Overall status at discharge: patient is back to baseline Mental Status: mental status grossly normal Speech and Movement: speech and movement normal Mood: congruent mood Affect: normal affect Exam Psych Mental Status: mental status grossly normal Speech and Movement: speech and movement normal Mood: congruent mood Affect: normal affect DS: Data Vitals/I&O Vitals and I&O: Vital Signs Temperature 35.4 C L 12/21/19 17:40 Temperature Source Tympanic 12/21/19 17:40 Pulse 63 12/21/19 17:40 Pulse Rhythm Regular 12/21/19 12:43 Respiratory Rate 16 12/21/19 17:40 Respiratory Effort Non-Labored 12/21/19 12:43 Respiratory Depth Normal 12/21/19 12:43 Respiratory Pattern Normal 12/21/19 12:43 Blood Pressure 116/71 12/21/19 17:40 Blood Pressure Position Sitting 12/20/19 22:01 Pulse Oximetry 94 L 12/21/19 17:40 Oxygen Delivery Method Room Air 12/21/19 17:40 Oxygen Flow Rate 0 12/21/19 17:40 Pain Level 5 12/21/19 17:40 Comment 12/21/19 12:43 Intake & Output 12/20/19 12/21/19 12/21/19 23:59 11:59 23:59 Intake Total 1000 / 1000 1291.667 / 2420.834 1129.167 / 2420.834 Balance 1000 / 1000 1291.667 / 2420.834 1129.167 / 2420.834 Weight 99.79 kg 99.79 kg Intake: IV 1000 / 1000 1291.667 / 2420.834 1129.167 / 2420.834 Other: Urine Appearance Clear Data Completed and Pending Labs on day of discharge: Labs from last 24 hours 12/21/19 12/20/19 12/20/19 11:48 23:10 22:35 WBC 13.92 H RBC 4.38 L Hgb 13.9 Hct 41.1 MCV 93.8 MCH 31.7 MCHC 33.8 RDW 12.7 Plt Count 246 MPV 10.0 Immature Gran % 0.0 Neutrophils % 73.0 Lymphocytes % 12.0 Atypical Lymphs % 1 Monocytes % 13.0 Eosinophils % 2.0 Basophils % 0.0 Absolute Neutrophils 10.16 H Absolute Lymphocytes 1.81 Absolute Monocytes 1.81 H Absolute Eosinophils 0.28 Absolute Basophils 0.00 Differential Comment Manual differential RBC Morphology Normal Sodium Potassium Chloride Carbon Dioxide Anion Gap BUN Creatinine Estimated GFR/1.73 m2 Glucose Calcium Urine Color Yellow Urine Clarity Clear Urine pH 6.5 Ur Specific [place] >= 1.030 H Urine Protein Negative Urine Ketones Negative Urine Blood Moderate H Urine Nitrite Negative Urine Bilirubin Negative Urine Urobilinogen 0.2 Ur Leukocyte Esterase Small H Urine RBC 5-10 H Urine WBC 5-10 Ur Epithelial Cells Few Urine Crystals Negative Urine Bacteria Moderate Urine Casts Negative Urine Mucus Negative Ur Culture Indicated? Yes Urine Glucose Negative COVID-19 PCR Pending Nasopharyn COVID-19 PCR Pending Ref Test Perform Site Pending 12/20/19 22:35 WBC RBC Hgb Hct MCV MCH MCHC RDW Plt Count MPV Immature Gran % Neutrophils % Lymphocytes % Atypical Lymphs % Monocytes % Eosinophils % Basophils % Absolute Neutrophils Absolute Lymphocytes Absolute Monocytes Absolute Eosinophils Absolute Basophils Differential Comment RBC Morphology Sodium 140 Potassium 4.0 Chloride 104 Carbon Dioxide 27.5 Anion Gap 8.5 BUN 22 H Creatinine 1.10 Estimated GFR/1.73 m2 >= 60.00 Glucose 133 H Calcium 8.7 Urine Color Urine Clarity Urine pH Ur Specific [place] Urine Protein Urine Ketones Urine Blood Urine Nitrite Urine Bilirubin Urine Urobilinogen Ur Leukocyte Esterase Urine RBC Urine WBC Ur Epithelial Cells Urine Crystals Urine Bacteria Urine Casts Urine Mucus Ur Culture Indicated? Urine Glucose COVID-19 PCR Nasopharyn COVID-19 PCR Ref Test Perform Site 12/20/19 23:10 Urine - Reflex from Urine Culture - Pending Preliminary micro results at discharge 12/20/19 23:10 Urine Culture - Pending Urine - Reflex from [facility] Medical History Crohn's disease (regional enteritis) (Chronic) Sallie-rectal abscess (Chronic) Surgical History H/O drainage of abscess (Chronic) Social History Smoking/Tobacco Use Status: Current every day Tobacco Type: cigarettes Smoking packs per day: 1 Smoking cigarettes per day: 20.0 Alcohol Intake: current Alcohol Intake frequency: a few times a week Alcohol type: beer and hard liquor Drug use: Never Substance use type: does not use Do you feel safe in your relationship?: Yes
[2019-12-21] MEDS: MORPHine 2 MG/ML SYR IV (18:08)
[2019-12-22 14:07] LABS: COVID-19 RT-PCR UVMMC Result Negative (Negative)
== END 2019-12-21 19:25 | disposition home or self-care (01) | DRG 348 ==
LOC: ER 12-21 08:28 → MS 12-21 12:31
PROVIDERS: Admitting Provider Surgery; Emergency Provider Emergency Medicine; PCP Family Medicine; Visit Provider Surgery
PROC: 0D9Q00Z Drainage of Anus with Drainage Device, Open Approach (ICD-10-PCS; CPT 46040; principal; 2019-12-21 16:30)
DX: K61.2 Anorectal abscess (principal); L03.317 Cellulitis of buttock; K50.90 Crohn's disease, unspecified, without complications; F17.210 Nicotine dependence, cigarettes, uncomplicated
CPT/HCPCS: 46050; 36415; 80048; 96361; 96365; 96367; 96368; 96375; 96376; 99220; 99238; 99285; U0003; 72193; 81003; 81015; 85025; 87086; J0131; J0295; J1720; J1885; J2001; J2250; J2270; J3010; J3490

== ENCOUNTER 2020-06-05 15:04 | Emergency (ER) | payer OTHER, SELFPAY ==
[2020-06-05] VITALS (24 sets, daily range): BP systolic 130–169; BP diastolic 85–118; PULSE 53–90; RESP 10–24; TEMP 36.6–36.9; O2SAT 94–98
--- NOTE | 2020-06-05 15:15 | DI.CT_ITS ---
EXAM: CT RENAL COLIC WO CLINICAL HISTORY: Left flank pain, R/O Kidney stone. TECHNIQUE: Imaging Protocol: Axial computed tomography images with coronal and sagittal reformatted images were created and reviewed. COMPARISON: No exams were available for comparison FINDINGS: ABDOMEN: Lung Bases: Normal where visualized. Liver: Normal density. No measurable mass. Gallbladder and biliary tract: No radiodense calculus or biliary ductal dilation. Pancreas: Normal density, no abnormal calcifications or inflammatory process. Spleen: Normal. Kidneys: Normal size, contour and axis.There are nonobstructing stones in the right kidney. No evide nce of left nephrolithiasis or hydronephrosis. No masses seen. Mild bilateral perinephric soft tissu e stranding. Adrenal glands: No mass is seen. Lymph nodes: Within normal limits. Abdominal Aorta: Abdominal portion non-dilated. Atherosclerosis. PELVIS: Bladder:Symmetric distention, no gross wall thickening. Bowel: No obstruction or bowel wall thickening. Appendix is unremarkable. Peritoneal cavity: No ascites, collection or mesenteric inflammatory response Reproductive organs: Within normal limits. Bones: Degenerative changes in the lumbar spine. Soft Tissues: There is a small fat containing umbilical hernia. IMPRESSION: 1. Right nephrolithiasis. No evidence of obstructive uropathy. 2. Bilateral perinephric stranding. This could reflect renal parenchymal disease including the infec tion. Please correlate clinically. RADIATION DOSE DELIVERED: 1,021.37mGy.cm Total DLP DATA REPOSITORY: All CT scans at this facility are submitted to the National Radiology Data Registry (NRDR) Dose Index Registry (DIR) with the [employer] ([employer]). RADIATION OPTIMIZATION: All CT scans at this facility use at least one of these dose optimization te chniques: automated exposure control; mA and/or kV adjustment per patient size (includes targeted exa ms where dose is matched to clinical indication); or iterative reconstruction.
[2020-06-05 15:17] LABS: Bilirubin Negative (Negative); Blood Moderate (Negative); Clarity Clear (Clear); Glucose Negative (Negative); Ketones Negative (Negative); Leukocyte Esterase Trace (Negative); Nitrite Negative (Negative); Specific Gravity >= 1.030 (1.005-1.025); Urobilinogen 0.2 EU/dL (Up TO 0.2); pH 6.5 (5-8)
--- NOTE | 2020-06-05 15:21 | ED.GENADUL_ITS ---
Discharge Plan Disposition Patient Disposition: HOME Condition: Stable Discharge Details Clinical Impression: Left flank pain Primary Care Provider: Rafat Tellez ED Provider: Roque Rodrigues Home Meds and New Rx's Prescriptions: New levofloxacin 750 mg tablet 750 mg PO DAILY 5 Days Qty: 5 RF: 0 oxycodone-acetaminophen [Percocet] 5-325 mg tablet 1 tab PO Q8H PRNQty: 8 RF: 0 No Action ibuprofen 600 mg tablet 600 mg PO Q6H PRNQty: 60 RF: 3 sennosides-docusate sodium [Senna Plus] 8.6-50 mg tablet 1 tab-cap PO BID Qty: 30 RF: 3 Discharge Instructions Instructions: Flank Pain (ED) Additional Instructions: As we discussed, the exact etiology of your symptoms are unclear. At this time we will treat both for potential kidney infection and musculoskeletal discomfort. Levaquin as directed. Percocet as directed. Percocet may cause drowsiness and/or constipation. Do not operate machinery while taking this medication. I do recommend taking [id number] stool softeners while taking Percocet. Plenty of fluids to avoid dehydration. Please watch for new or worsening symptoms return to the ER for any concerns. Lastly, I strongly recommend contacting the primary care provider tomorrow for prompt outpatient evaluation. Discharge Data Discharge Date/Time-TO BE ENTERED AT DEPARTURE: 06/05/20 20:26 Medical Decision Making <Barb Loco - Last Filed: 06/06/20 08:12> 55-year-old male presents to the ED with chief complaint of left flank pain which began last night. He reports that begins in his left flank radiates around to his left lower quadrant into his left testicle and left leg. He reports sharp shooting pain. He denies any dysuria or problems urinating. No nausea no vomiting denies fever or chills. Did not take any medications prior to arrival. He denies any trauma or heavy lifting other than the daily lifting of what it normally does. He has a past medical history of Crohn's disease, perirectal abscess and he has a daily smoker. Work-up ordered including CBC, CMP, CT renal colic without contrast ordered. Normal saline ordered with Zofran and 30 mg of Toradol. Urinalysis shows moderate blood, trace leukocytes. 1600: Patient re-evaluation: Continued pain, unable to find position of comfort, is standing up at side of bed. Scrotum visualized and is tender to palpation, questionable palpable mass at the base of scrotal sac. No significant swelling or erythema appreciated. US scrotum ordered to R/O mass, variocelel, epididymitis,torsion, or inguinal hernia. Morphine 4 mg IV ordered. Care is to be handed off to Roque ALLEN pending labs, CT, and US result. Discussed case and details with him, verbalized understanding. <ALEJANDRO Morris - Last Filed: 06/05/20 19:36> I assumed care of this 55-year-old gentleman from my colleague MONTY Loco at shift change. Please see her initial HPI and examination. In short this is a 55-year-old gentleman who developed left carotid flank discomfort wrapping from his back around down into his groin, testicles, leg. At time of signout patient is already received Toradol and morphine with little relief. Awaiting CT imaging and ultrasound. Ultrasound read by radiology as small bilateral varicoceles and a right hydrocele. Scrotal ultrasound otherwise normal. On reevaluation patient remains uncomfortable. Given 1 mg IV Dilaudid. He does have point tenderness over the left SI joint. CT imaging of abdomen and pelvis without contrast read by radiology as a 4 mm nonobstructing stone in the right kidney. Bilateral perinephric soft tissue stranding which could reflect renal parenchymal disease including infection. This is difficult to evaluate without IV contrast of the chest similar to CT contrast-enhanced on 04-29-18. Patient does have a red and white cells in his urine as well as bacteria. Laboratory values reveal a minimal leukocytosis. He does have a bilateral perinephritic soft tissue stranding. Discussed the case with Dr. Kee. He does feel as though initiating antibiotic therapy for infectious process was certainly reasonable. We will treat the patient with 750 IV Levaquin. I do believe there may also be a musculoskeletal component to this presentation. We will also give 5 mg IV Valium. At this time I did discuss admission for retractable pain and continuation of IV antibiotics and analgesia, patient is thankful for this option but does decline. Both patient and are aware that admission has been offered and has been declined at this time. He assures me that he will watch for new or worsening symptoms and return immediately to the ER. Otherwise he will contact his primary care provider tomorrow for prompt outpatient reevaluation. I will provide a take-home pack for Percocet this evening and a prescription for Percocet and Levaquin to fill tomorrow. Patient and family are comfortable this plan and has no additional questions or concerns. Upon discharge patient is not pain-free but does report that the Valium and narcotic medication has helped his pain moderately. Medical Records Medical records reviewed: Yes I reviewed the patient's medical records. Lab Data Lab results reviewed: Yes I reviewed the patient's lab results. Labs: 06/05/20 15:12 Urine - Reflex from Ua Urine Culture - Pending Laboratory Tests Range/Units 06/05/20 06/05/20 06/05/20 15:12 15:35 15:35 WBC (4.4-10.8) 10^3/uL 11.25 H RBC (4.36-5.78) 10^6/uL 4.80 Hgb (13.5-17.5) g/dL 14.9 Hct (40.0-50.0) % 43.9 MCV (80-95) fL 91.5 MCH (27.0-33.0) pg 31.0 MCHC (32.0-36.0) % 33.9 RDW (11.8-14.1) % 13.0 Plt Count (130-400) 10^3/uL 258 MPV (8.0-11.0) fL 10.3 Immature Gran % 0.3 Neutrophils % 64.0 Lymphocytes % 24.2 Monocytes % 9.7 Eosinophils % 1.4 Basophils % 0.4 Nucleated RBC % % 0 Absolute Neutrophils (1.2-6.7) 10^3/uL 7.20 H Absolute Lymphocytes (1.2-3.4) 10^3/uL 2.72 Absolute Monocytes (0.1-0.8) 10^3/uL 1.09 H Absolute Eosinophils (0.0-0.7) 10^3/uL 0.16 Absolute Basophils (0.0-0.2) 10^3/uL 0.05 Sodium (136-145) mmol/L 141 Potassium (3.5-5.1) mmol/L 4.2 Chloride (98-107) mmol/L 105 Carbon Dioxide (21.0-32.0) mmol/L 27.1 Anion Gap (3-11) mmol/L 8.9 BUN (7-18) mg/dL 16 Creatinine (0.70-1.30) mg/dL 0.96 Estimated GFR/1.73 m2 (mL/min/1.73m2) >= 60.00 Glucose (74-106) mg/dL 101 Calcium (8.5-10.1) mg/dL 9.0 Total Bilirubin (0.2-1.0) mg/dL 0.3 AST (15-37) U/L 10 L ALT (16-63) U/L 22 Alkaline Phosphatase (46-116) U/L 80 Total Protein (6.4-8.2) g/dL 7.9 Albumin (3.4-5.0) g/dL 3.7 Lipase (73-393) U/L Urine Color (Yellow) Yellow Urine Clarity (Clear) Clear Urine pH (5-8) 6.5 Ur Specific [place] (1.005-1.025) >= 1.030 H Urine Protein (Negative) mg/dL Negative Urine Ketones (Negative) mg/dL Negative Urine Blood (Negative) Moderate H Urine Nitrite (Negative) Negative Urine Bilirubin (Negative) Negative Urine Urobilinogen (Up TO 0.2) EU/dL 0.2 Ur Leukocyte Esterase (Negative) Trace H Urine RBC (0-2) HPF 3-5 H Urine WBC (0-5) HPF 5-10 Ur Epithelial Cells (Negative) HPF Rare Urine Crystals (Negative) HPF Negative Urine Bacteria (Negative) HPF Rare Urine Casts (Negative) LPF Negative Urine Mucus (Negative) Trace Ur Culture Indicated? Yes Urine Glucose (Negative) mg/dL Negative Range/Units 06/05/20 15:35 WBC (4.4-10.8) 10^3/uL RBC (4.36-5.78) 10^6/uL Hgb (13.5-17.5) g/dL Hct (40.0-50.0) % MCV (80-95) fL MCH (27.0-33.0) pg MCHC (32.0-36.0) % RDW (11.8-14.1) % Plt Count (130-400) 10^3/uL MPV (8.0-11.0) fL Immature Gran % Neutrophils % Lymphocytes % Monocytes % Eosinophils % Basophils % Nucleated RBC % % Absolute Neutrophils (1.2-6.7) 10^3/uL Absolute Lymphocytes (1.2-3.4) 10^3/uL Absolute Monocytes (0.1-0.8) 10^3/uL Absolute Eosinophils (0.0-0.7) 10^3/uL Absolute Basophils (0.0-0.2) 10^3/uL Sodium (136-145) mmol/L Potassium (3.5-5.1) mmol/L Chloride (98-107) mmol/L Carbon Dioxide (21.0-32.0) mmol/L Anion Gap (3-11) mmol/L BUN (7-18) mg/dL Creatinine (0.70-1.30) mg/dL Estimated GFR/1.73 m2 (mL/min/1.73m2) Glucose (74-106) mg/dL Calcium (8.5-10.1) mg/dL Total Bilirubin (0.2-1.0) mg/dL AST (15-37) U/L ALT (16-63) U/L Alkaline Phosphatase (46-116) U/L Total Protein (6.4-8.2) g/dL Albumin (3.4-5.0) g/dL Lipase (73-393) U/L 79 Urine Color (Yellow) Urine Clarity (Clear) Urine pH (5-8) Ur Specific [place] (1.005-1.025) Urine Protein (Negative) mg/dL Urine Ketones (Negative) mg/dL Urine Blood (Negative) Urine Nitrite (Negative) Urine Bilirubin (Negative) Urine Urobilinogen (Up TO 0.2) EU/dL Ur Leukocyte Esterase (Negative) Urine RBC (0-2) HPF Urine WBC (0-5) HPF Ur Epithelial Cells (Negative) HPF Urine Crystals (Negative) HPF Urine Bacteria (Negative) HPF Urine Casts (Negative) LPF Urine Mucus (Negative) Ur Culture Indicated? Urine Glucose (Negative) mg/dL HPI <Barb Loco - Last Filed: 06/06/20 08:12> General Mode of arrival: ambulatory . Date/Time Provider Initiated Documentation: 06/05/20 15:04 . Limitations to Documentation: no limitations . Information obtained by: patient . HPI Narrative: 55-year-old male presents to the ED with chief complaint of left flank pain which began last night. He reports that begins in his left flank radiates around to his left lower quadrant into his left testicle and left leg. He reports sharp shooting pain. He denies any dysuria or problems urinating. No nausea no vomiting denies fever or chills. Did not take any medications prior to arrival. He denies any trauma or heavy lifting other than the daily lifting of what it normally does. He has a past medical history of Crohn's disease, perirectal abscess and he has a daily smoker. Related Data Home Medications Medication Instructions Recorded Confirmed ibuprofen 600 mg PO Q6H PRN #60 tab 12/21/19 06/05/20 sennosides-docusate sodium [Senna 1 tab-cap PO BID #30 tab 12/21/19 06/05/20 Plus] levofloxacin 750 mg PO DAILY 5 Days #5 tab 06/05/20 oxycodone-acetaminophen [Percocet] 1 tab PO Q8H PRN #8 tab 06/05/20 Previous Rx's Medication Instructions Recorded ibuprofen 600 mg PO Q6H PRN #60 tab 12/21/19 sennosides-docusate sodium [Senna 1 tab-cap PO BID #30 tab 12/21/19 Plus] levofloxacin 750 mg PO DAILY 5 Days #5 tab 06/05/20 oxycodone-acetaminophen [Percocet] 1 tab PO Q8H PRN #8 tab 06/05/20 Allergies Allergy/AdvReac Type Severity Reaction Status Date / Time No Known Allergies Allergy Unverified 06/05/20 15:15 General Stated Complaint: FlankPain FLORA: 3 Review of Systems <Barb Loco - Last Filed: 06/06/20 08:12> Narrative: Constitutional: Negative for weight loss, alert and oriented, well groomed, normal body habitus, appears comfortable. HEENT: Denies trauma, headaches, blurry vision, nasal discharge, sore throat, trouble swallowing. Chest: Denies chest pain, palpitations, irregular rhythm, hypertension. Respiratory: Denies Shortness of breath, cough, hemoptysis. GI: Denies nausea, vomiting, diarrhea, constipation. Mild left lower quadrant abdominal pain. : Denies dysuria, hematuria, rectal bleeding. Positive for left flank pain left testicle tenderness. Neuro: Denies dizziness, blurry vision, weakness, syncope, headache or facial numbness. Hematologic: Denies easy bruising, intolerance to heat or cold, hair loss. PFSH <Barb Loco - Last Filed: 06/06/20 08:12> Medical History Crohn's disease (regional enteritis) Sallie-rectal abscess Smoker Surgical History H/O drainage of abscess Social History Smoking/Tobacco Use Status: Current every day Tobacco Type: cigarettes Smoking packs per day: 1 Smoking cigarettes per day: 20.0 Smoking risk assessment performed?: Yes Alcohol Intake: current Alcohol Intake frequency: a few times a week Alcohol type: beer and hard liquor Drug use: Never Substance use type: does not use Current gender identity: male Do you feel safe at home: Yes Do you feel safe in your relationship?: Yes Exam <Barb Loco - Last Filed: 06/06/20 08:12> Narrative Exam Narrative: Constitutional: Alert and oriented x3. Appears stated age. Normal body habitus. Head: Normocephalic, no trauma. Eyes: Pupils PERRLA, Red reflex noted, EOM's intact. Eyelids symmetrical without lesions, discharge, or swelling. ENT: Bilateral TM's WNL, External ear normal to inspection, no mastoid TTP, swelling, or erythema, Nasal turbinates WNL, no nasal discharge. Normal dentition, Posterior pharynx WNL, no exudate. Chest: RRR, Normal S1, S2, distal pulses intact. Resp: Lungs clear to auscultation bilaterally, no wheezes, rales, or rhonchi. Abdomen: Left CVA tenderness. Abdomen is soft, nondistended nontender to palpation. Musculoskeletal: Normal gait, 5/5 strength to all four extremities. Skin: No suspicious rashes or lesions. Capillary refill less than 2 sec. Neurologic: Cranial nerves II-XII intact. Alert and oriented x 3. DTR's intact. Hematologic/Lymphatic: No ecchymosis, no lymphadenopathy. Course <Barb Loco - Last Filed: 06/06/20 08:12> Vital Signs Vital signs: Vital Signs Temperature 36.9 C 06/05/20 15:10 Pulse 90 06/05/20 15:10 Blood Pressure 169/118 H 06/05/20 15:10 Pulse Oximetry 96 06/05/20 15:10 Temperature 36.9 C 06/05/20 15:10 Temperature Source Temporal Artery Scan 06/05/20 15:10 Pulse 90 06/05/20 15:10 Respiratory Effort Non-Labored 06/05/20 15:14 Blood Pressure 169/118 H 06/05/20 15:10 Blood Pressure Position Sitting 06/05/20 15:10 Pulse Oximetry 96 06/05/20 15:10 Oxygen Delivery Method Room Air 06/05/20 15:10 Oxygen Flow Rate 0 06/05/20 15:10 Pain Level 8 06/05/20 15:15 Lab/Test Results Lab/Test Results: Laboratory Tests Range/Units 06/05/20 15:12 Urine Color (Yellow) Yellow Urine Clarity (Clear) Clear Urine pH (5-8) 6.5 Ur Specific [place] (1.005-1.025) >= 1.030 H Urine Protein (Negative) mg/dL Negative Urine Ketones (Negative) mg/dL Negative Urine Blood (Negative) Moderate H Urine Nitrite (Negative) Negative Urine Bilirubin (Negative) Negative Urine Urobilinogen (Up TO 0.2) EU/dL 0.2 Ur Leukocyte Esterase (Negative) Trace H Urine Glucose (Negative) mg/dL Negative Sign Out <Babr Loco - Last Filed: 06/06/20 08:12> Sign Out Data: Sign Out Comment: Pending labs and CT renal colic R/O kidney stone Last updated by Barb Loco at 06/05/20 15:44
[2020-06-05 15:29] LABS: Bacteria Rare HPF (Negative); C & S Indicated? Yes; Casts Negative LPF (Negative); Crystals Negative HPF (Negative); Epithelial Cells Rare HPF (Negative); Mucus Trace (Negative)
[2020-06-05] MEDS: Normal Saline 1,000 ML 1000 ML IV ×2 (15:35→16:44)
[2020-06-05] MEDS: Normal Saline Flush 10 ML SYR IVP (15:35)
[2020-06-05] MEDS: Ondansetron 4 MG/2 ML VIAL IVP (15:35)
[2020-06-05] MEDS: Ketorolac 30 MG/ML VIAL IVP (15:41)
--- NOTE | 2020-06-05 15:45 | DI.US_ITS ---
EXAM: US SCROTUM CLINICAL HISTORY: Left testicle pain. TECHNIQUE: Scrotal ultrasound performed using grayscale, color-flow and spectral Doppler analysis. COMPARISON: No exams were available for comparison FINDINGS: Right testicle: 4.3 x 1.8 x 4.1 cm Echogenicity: Normal. Contour: Smooth. Mass: None seen. Microlithiasis: None. Hydrocele: Tiny right hydrocele. Variocele: Small varicocele Hernia: No peristalsing bowel loop identified. Epididymis: 1 cm epididymal head cyst. Left testicle: 4.1 x 2.1 x 3.3 cm Echogenicity: Normal. Contour: Smooth. Mass: None seen. Microlithiasis: None. Hydrocele: None. Variocele: Small varicocele. Hernia: No peristalsing bowel loop identified. Epididymis: 0.5 cm epididymal head cyst. DOPPLER: Color: Symmetric and uniform, no hyperemia. Duplex: Bilateral testicular arterial waveforms visualized. IMPRESSION: 1. Normal bilateral testicles. 2. Small bilateral varicoceles and small right hydrocele. DATA REPOSITORY:
[2020-06-05 15:54] LABS: Abs Immature Grans 0.03 10^3/uL (0.0-0.06); Absolute Basophil Count 0.05 10^3/uL (0.0-0.2); Absolute Eosinophil Count 0.16 10^3/uL (0.0-0.7); Absolute Lymphocyte Count 2.72 10^3/uL (1.2-3.4); Absolute Monocyte Count 1.09 10^3/uL (0.1-0.8); Basophils % 0.4; Eosinophils % 1.4; HCT 43.9 % (40.0-50.0); HGB 14.9 g/dL (13.5-17.5); Immature Grans % 0.3; Lymphocytes % 24.2; MCHC 33.9 % (32.0-36.0); MCV 91.5 fL (80-95); MPV 10.3 fL (8.0-11.0); Monocytes % 9.7; Nucleated RBC 0 %; Platelet Count 258 10^3/uL (130-400); RDW-SD 43.7 fL; WBC 11.25 10^3/uL (4.4-10.8)
[2020-06-05 16:18] LABS: ALT 22 U/L (16-63); AST 10 U/L (15-37); Albumin 3.7 g/dL (3.4-5.0); Alkaline Phosphatase 80 U/L (46-116); Anion Gap 8.9 mmol/L (3-11); BUN 16 mg/dL (7-18); Bilirubin, Total 0.3 mg/dL (0.2-1.0); CO2 27.1 mmol/L (21.0-32.0); CREATININE 0.96 mg/dL (0.70-1.30); Chloride 105 mmol/L (98-107); Glucose 101 mg/dL (74-106); Potassium 4.2 mmol/L (3.5-5.1); Sodium 141 mmol/L (136-145); Total Protein 7.9 g/dL (6.4-8.2)
[2020-06-05] MEDS: HYDROmorphone 2 MG/ML VIAL 1 MG IVP (16:43)
--- NOTE | 2020-06-05 16:43 | DI.VRAD_ITS ---
PROCEDURE INFORMATION: Exam: US Scrotum Exam date and time: 06/05/2020 4:28 PM Age: 55 years old Clinical indication: Flank pain TECHNIQUE: Imaging protocol: Real-time ultrasound of the scrotum and contents with color Doppler and image documentation. COMPARISON: No relevant prior studies available. FINDINGS: Right testicle: Normal. No mass. No torsion. Normal vascular flow. Left testicle: Normal. No mass. No torsion. Normal vascular flow. Epididymides: Normal. Scrotum: Small bilateral varicoceles. Small right hydrocele IMPRESSION: Small bilateral varicoceles and right hydrocele. Scrotal ultrasound otherwise normal. Dictated and Authenticated by: Sosa Hogan MD. Ordering:DONNIE Day MD
--- NOTE | 2020-06-05 17:17 | DI.VRAD_ITS ---
PROCEDURE INFORMATION: Exam: CT Abdomen And Pelvis Without Contrast Exam date and time: 06/05/2020 4:33 PM Age: 55 years old Clinical indication: Other: Flank pain TECHNIQUE: Imaging protocol: Computed tomography of the abdomen and pelvis without contrast. COMPARISON: CT PELVIC W 12/20/2019 11:[address] abdomen and pelvis 04/29/2018 FINDINGS: Liver: Normal. No mass. Gallbladder and bile ducts: Normal. No calcified stones. No ductal dilation. Pancreas: Normal. No ductal dilation. Spleen: Normal. No splenomegaly. Adrenal glands: Benign appearing thickening of the bilateral adrenal glands. Kidneys and ureters: Stable bilateral perinephric soft tissue stranding. Stable nonbstructing 4 mm stone in the mid right kidney. Several other tiny punctate calcification in the right renal pelvis. No evidence of urinary obstruction. Stomach and bowel: Moderate amount of stool in the colon. Appendix: No evidence of appendicitis. Intraperitoneal space: Unremarkable. No free air. No significant fluid collection. Vasculature: Vascular calcifications. No aneurysm identified. Lymph nodes: Unremarkable. No enlarged lymph nodes. Urinary bladder: Unremarkable as visualized. Reproductive: Unremarkable as visualized. Bones/joints: Degenerative arthritis in lumbar spine. Soft tissues: Tiny fat containing periumbilical hernia. IMPRESSION: 1. 4mm nonobstructing stone in the right kidney. 2. Bilateral perinephric soft tissue stranding could reflect renal parenchymal disease including infection. This is difficult to evaluate without IV contrast but appears similar to the contrast-enhanced CT 04/29/2018. Dictated and Authenticated by: Sosa Hogan MD. Ordering:DONNIE Day MD
[2020-06-05 17:44] LABS: Lipase 79 U/L (73-393)
[2020-06-05] MEDS: diazePAM 10 MG/2 ML SYR 5 MG IVP (18:13)
[2020-06-05] MEDS: levoFLOXacin 750 MG/150 ML BAG 100 MG IVPB (18:50)
[2020-06-09 15:47] LABS: Anaplasma phagocytophilum Negative (Negative); B. miyamotoi PCR Negative (Negative); Babesia divergens/MO-1 Negative (Negative); Babesia duncani Negative (Negative); Babesia microti Negative (Negative); Ehrlichia chaffeensis Negative (Negative); Ehrlichia ewingii/canis Negative (Negative); Ehrlichia muris eauclairensis Negative (Negative)
== END 2020-06-05 20:26 | disposition home or self-care (01) ==
PROVIDERS: Registered Nurse Emergency; Emergency Provider Physician Assistant; PCP Family Medicine
DX: R10.32 Left lower quadrant pain (principal); M54.5 Low back pain; R93.421 Abnormal radiologic findings on diagnostic imaging of right kidney; R93.422 Abnormal radiologic findings on diagnostic imaging of left kidney; N43.3 Hydrocele, unspecified
CPT/HCPCS: 36415; 80053; 83690; 87798; 96361; 96365; 96375; 99284; 74176; 76870; 81003; 81015; 85025; 87086; J1885; J1956; J2405; J3360

== ENCOUNTER 2021-03-31 03:05 | Inpatient (IN) | payer OTHER, SELFPAY ==
[2021-03-31 03:14] VITALS: BP 138/79; PULSE 91; RESP 18; TEMP 37.2; O2SAT 94
--- NOTE | 2021-03-31 03:15 | DI.CT_ITS ---
Exam(s) CT ABDOMEN PELVIS W EXAM: CT ABDOMEN PELVIS W CLINICAL HISTORY: recurrent abscess, buttock pain TECHNIQUE: COMPARISON: CT CT RENAL COLIC WO from 06/05/2020 FINDINGS: CT examination of the abdomen and pelvis was performed with bolus infusion of 100 cc of Omnipaque 350 . Images obtained through the lung bases are unremarkable. The liver appears normal with no evidence of a focal mass. Spleen is unremarkable in appearance.. Gallbladder and bile ducts are unremarkable. Pancreas is unremarkable in appearance. Adrenals appear normal bilaterally. There is a small nonobstructing stone the right kidney. No other renal or ureteral calcification see n. No hydronephrosis, or solid renal mass. The urinary bladder is nearly empty. There is question wall thickening of the urinary bladder, this can be associated with chronic bladder outlet obstructio n or cystitis.. There is no evidence of abdominal or pelvic adenopathy. Abdominal aorta is of normal diameter and no abnormality is seen involving major visceral branches.. Appendix is normal. No evidence diverticulitis or bowel obstruction. No significant abdominal wall hernia seen. There is an apparent subcutaneous abscess measuring about 5 x 1.5 cm in diameter on transverse images . This lies in the left gluteal fold posterior to the anus but does not appear to involve the deep s tructures. Impression: Apparent subcutaneous abscess of left gluteal fold. No evident involvement of deep structures. Nonobstructing right nephrolithiasis noted. RADIATION DOSE DELIVERED: 1,603.02mGy.cm Total DLP 1,603.02mGy.cm Total DLP 22.7mGy CTDIvol DATA REPOSITORY: All CT scans at this facility are submitted to the National Radiology Data Registry (NRDR) Dose Index Registry (DIR) with the [employer] (ACR). RADIATION OPTIMIZATION: All CT scans at this facility use at least one of these dose optimization te chniques: automated exposure control; mA and/or kV adjustment per patient size (includes targeted exa ms where dose is matched to clinical indication); or iterative reconstruction.
--- NOTE | 2021-03-31 03:31 | W.ED.GENAD ---
Discharge Plan Disposition Patient Disposition: [facility] INPATIENT Condition: Stable Discharge Details Clinical Impression: Abscess and cellulitis of gluteal region Primary Care Provider: Rafat Tellez ED Provider: Robby Kee Home Meds and New Rx's Prescriptions: No Action No Known Home Meds RF: 0 Medical Decision Making 56-year-old male presents from home with his . He has history of Crohn's disease, not currently on immunomodulatory therapies, and now presents with 3 days of recurrent left perirectal swelling and pain. On exam he clearly has a developing abscess. He has had approximately 12 previous surgeries, but has no current active follow-up with gastroenterology. Patient IV established, screening labs and cultures obtained. Is given fluids, analgesic and parenteral antibiotics. Patient's diagnostic studies are notable for white blood cell count of 14.8, hematocrit 43, platelets 208. Lactic acid 0.6, unremarkable basic chemistries. COVID-[address] images reveal left-sided medial gluteal fold abscess measuring approximately 5 x 1.5 cm. Given patient's history of multiple previous interventions and drainages, case was discussed with Dr. Livingston who will see the patient in consultation. HPI General Mode of arrival: ambulatory. Date/Time Provider Initiated Documentation: 03/31/21 03:12. Limitations to Documentation: no limitations. Information obtained by: patient and family. History of Present Illness 56 year old M presents to the emergency department with the chief complaint of Recurrent perirectal abscess, described as moderate, Quality is described as dull and constant, and is localized to the abdomen, pelvis and left. Patient reports no radiation. Patient started experiencing this day(s) and it has been constant. No relieving factors improve symptom(s), Other factors that worsen symptoms (Worse with pressure and movement) . Patient notes fever/chills; denies nausea/vomiting. Patient did receive the following treatments prior to arrival, none Related Data Home Medications Medication Instructions Recorded Confirmed Unknown [No Known Home Meds] 03/31/21 03/31/21 Allergies Allergy/AdvReac Type Severity Reaction Status Date / Time No Known Allergies Allergy Unverified 03/31/21 03:29 General Stated Complaint: Cellulitis FLORA: 2 Review of Systems Narrative: Subjective fever and chills. Nauseated. No vomiting. No recent illness. Not immunized. 8 systems reviewed and otherwise negative [facility] Medical History Crohn's disease (regional enteritis) Sallie-rectal abscess Smoker Surgical History H/O drainage of abscess Social History Smoking/Tobacco Use Status: Current every day Tobacco Type: cigarettes Smoking packs per day: 1 Smoking cigarettes per day: 20.0 Smoking risk assessment performed?: Yes Alcohol Intake: current Alcohol Intake frequency: a few times a week Alcohol type: beer and hard liquor Drug use: Never Substance use type: does not use Current gender identity: male Do you feel safe at home: Yes Do you feel safe in your relationship?: Yes Exam Narrative Exam Narrative: GEN: awake, alert, oriented 3. Pleasant, well groomed, interactive. HEAD: Normocephalic, atraumatic ENT: Mucous membranes moist, oropharynx unremarkable, External ear exam unremarkable EYES: PERRL, EOMI NECK: Full ROM, no REINIER, no menigismus CHEST/RESP: Nontender, clear to auscultation bilateral, no wheeze/rhonchi/rales CARDIOVASCULAR: Regular and tachycardic, no murmur, rub myles. 2+ Rad pulse bilateral ABDOMEN: Soft, nontender, no mass. +Bowel sounds. There is a large left perirectal abscess extending to buttock. Tender. EXT: Full ROM, no edema, no rash Neuro: Grossly normal neurologic exam, conversant, interactive. Psych: Speech fluent, thoughts congruent, affect normal Course Vital Signs Vital signs: Vital Signs Temperature 37.2 C 03/31/21 03:14 Pulse 91 H 03/31/21 03:14 Respiratory Rate 18 03/31/21 03:14 Blood Pressure 138/79 03/31/21 03:14 Pulse Oximetry 94 03/31/21 03:14 Temperature 37.2 C 03/31/21 03:14 Temperature Source Oral 03/31/21 03:14 Pulse 91 H 03/31/21 03:14 Respiratory Rate 18 03/31/21 03:14 Blood Pressure 138/79 03/31/21 03:14 Blood Pressure Position Supine 03/31/21 03:14 Pulse Oximetry 94 03/31/21 03:14 Oxygen Delivery Method Room Air 03/31/21 03:14 Oxygen Flow Rate 0 03/31/21 03:14 Pain Level 9 03/31/21 03:14
[2021-03-31 03:47] LABS: Source Nasal/Nares
[2021-03-31 03:48] LABS: Abs Immature Grans 0.04 10^3/uL (0.0-0.06); Absolute Basophil Count 0.04 10^3/uL (0.0-0.2); Basophils % 0.3; Eosinophils % 0.7; HCT 43.1 % (40.0-50.0); HGB 14.4 g/dL (13.5-17.5); Immature Grans % 0.3; Lymphocytes % 13.6; MCH 31.3 pg (27.0-33.0); MCHC 33.4 % (32.0-36.0); MCV 93.7 fL (80-95); MPV 9.9 fL (8.0-11.0); Monocytes % 12.8; Neutrophils % 72.3; Nucleated RBC 0 %; Platelet Count 208 10^3/uL (130-400); RDW 12.1 % (11.8-14.1); RDW-SD 42.5 fL; WBC 14.81 10^3/uL (4.4-10.8)
[2021-03-31] MEDS: Ketorolac 15 MG/ML VIAL IVP (03:52)
[2021-03-31 03:53] LABS: Lactate 0.6 mmol/L (0.6-1.4)
[2021-03-31 03:57] LABS: Absolute Lymphocyte Count 2.01 10^3/uL (1.2-3.4); Absolute Neutrophil Count 10.71 10^3/uL (1.2-6.7)
[2021-03-31 03:58] LABS: Diff Comment Agrees w/ Instrument; RBC Morphology Normal
[2021-03-31 04:02] LABS: Bilirubin Negative (Negative); Blood Large (Negative); Clarity Sl Cloudy (Clear); Glucose Negative (Negative); Ketones Trace mg/dL (Negative); Leukocyte Esterase Negative (Negative); Nitrite Negative (Negative); Specific Gravity >= 1.030 (1.005-1.025); Urobilinogen 0.2 EU/dL (Up TO 0.2)
[2021-03-31 04:05] LABS: ALT 19 U/L (16-63); AST 11 U/L (15-37); Albumin 3.3 g/dL (3.4-5.0); Alkaline Phosphatase 75 U/L (46-116); Anion Gap 8.2 mmol/L (3-11); BUN 14 mg/dL (7-18); Bilirubin, Total 0.5 mg/dL (0.2-1.0); CO2 26.8 mmol/L (21.0-32.0); CREATININE 0.8 mg/dL (0.70-1.30); Calcium 8.6 mg/dL (8.5-10.1); Chloride 106 mmol/L (98-107); Glucose 119 mg/dL (74-106); Potassium 3.9 mmol/L (3.5-5.1); Sodium 141 mmol/L (136-145); Total Protein 7.6 g/dL (6.4-8.2)
[2021-03-31 04:10] LABS: Bacteria Rare HPF (Negative); C & S Indicated? No; Casts 0-2 Hyaline LPF (Negative); Crystals Negative HPF (Negative); Epithelial Cells Negative HPF (Negative); Mucus Moderate (Negative); WBC 0-2 HPF (0-5)
[2021-03-31] MEDS: Omnipaque 350 MG/ML 100 ML BTL IJ (04:11)
[2021-03-31] MEDS: Normal Saline - Diluent 50 ML VIAL IV (04:11)
[2021-03-31] MEDS: Normal Saline 1,000 ML 125 ML IV ×3 (04:23→09:23)
[2021-03-31] MEDS: PIPERACILLIN/TAZO 4.5 GM in Normal Saline 100 ML IVPB (04:24)
[2021-03-31] MEDS: Normal Saline 100 ML 200 ML (04:24)
[2021-03-31 04:41] LABS: COVID-19 PCR Negative (Negative)
--- NOTE | 2021-03-31 05:08 | DI.VRAD_ITS ---
PROCEDURE INFORMATION: Exam: CT Abdomen And Pelvis With Contrast Exam date and time: 03/31/2021 3:31 AM Age: 56 years old Clinical indication: Condition or disease; Abscess location: Sallie-rectal; Patient HX: Recurrent abscess, buttock pain TECHNIQUE: Imaging protocol: Computed tomography of the abdomen and pelvis with contrast. Radiation optimization: All CT scans at this facility use at least one of these dose optimization techniques: automated exposure control; mA and/or kV adjustment per patient size (includes targeted exams where dose is matched to clinical indication); or iterative reconstruction. Contrast material: OMNIPAQUE 350; Contrast volume: 100 ml; Contrast route: INTRAVENOUS (IV); COMPARISON: CT PELVIC W 12/20/2019 11:21 PM FINDINGS: Liver: Normal. No mass. Gallbladder and bile ducts: Normal. No calcified stones. No ductal dilation. Pancreas: Normal. No ductal dilation. Spleen: Normal. No splenomegaly. Adrenal glands: Normal. No mass. Kidneys and ureters: Normal. No hydronephrosis. Stomach and bowel: See Soft tissues finding. Appendix: No evidence of appendicitis. Intraperitoneal space: Unremarkable. No free air. No significant fluid collection. Vasculature: Unremarkable. No abdominal aortic aneurysm. Lymph nodes: Unremarkable. No enlarged lymph nodes. Urinary bladder: Unremarkable as visualized. Reproductive: Unremarkable as visualized. Bones/joints: Unremarkable. No acute fracture. Soft tissues: Left-sided medial gluteal fold abscess measures 4.9 x 1.5 cm in transverse dimension. This does not obviously extend into a perianal/perirectal location and may simply reflect an intertriginous process. However surgical evaluation is recommended. IMPRESSION: Left-sided medial gluteal fold abscess measures 4.9 x 1.5 cm in transverse dimension. This does not obviously extend into a perianal/perirectal location and may simply reflect an intertriginous process. However surgical evaluation is recommended. Dictated and Authenticated by: Donald Pierson MD. Ordering:GABBIE Bustamante MD
[2021-03-31] MEDS: metroNIDAZOLE 500 MG/100 ML BAG 100 MG IVPB (05:15)
[2021-03-31] MEDS: HYDROmorphone 2 MG/ML VIAL 0.5 MG IVP (07:22)
[2021-03-31 08:37] VITALS: BP 111/78; PULSE 79; RESP 16; TEMP 37.2; O2SAT 97
[2021-03-31 08:39] VITALS: BP 153/92; PULSE 82; RESP 16; TEMP 36.8; O2SAT 95
[2021-03-31] MEDS: Acetaminophen 500 MG TAB 1000 MG PO ×2 (09:20→14:01)
[2021-03-31] MEDS: PIPERACILLIN/TAZO 3.375 GM in Normal Saline 50 ML IVPB (09:30)
--- NOTE | 2021-03-31 13:02 | W.PM.HP.N ---
Date of service: 03/31/21 Time of Service: 13:02 Assessment and Plan Assessment and plan (1) Smoker: Status: Acute (2) Crohn's disease (regional enteritis): Status: Chronic (3) Abscess and cellulitis of gluteal region: Status: Acute Assessment and plan: Damage to sphincters resulting in stenosis or loss of control. Chronic pain or chronic numbness. Complications from anesthesia. Nonhealing. Other unforetold complications. Patient really needs to be on a biologic and to follow-up closely with GI down at [facility]. He is rather well recalcitrant and does not like being on a biologic in refuses to be on this therapy long-term. He is not currently on any medication for his Crohn's History of Present Illness Narrative: Patient is well-known to me. He has longstanding history of Crohn's disease and anal rectal disease. He is supposed to be maintained on Remicade therapy but refuses to take it. He has been lost to follow-up with [facility]. He presents to the ER today with 48 hours of rectal pain. He has another abscess on the left gluteal fold. Review of Systems All systems reviewed & are unremarkable except as noted in HPI and below PFSH Medical History Crohn's disease (regional enteritis) Sallie-rectal abscess Smoker Surgical History H/O drainage of abscess Social History Smoking/Tobacco Use Status: Current every day Tobacco Type: cigarettes Smoking packs per day: 1 Smoking cigarettes per day: 20.0 Smoking risk assessment performed?: Yes Alcohol Intake: current Alcohol Intake frequency: a few times a week Alcohol type: beer and hard liquor Drug use: Never Substance use type: does not use Current gender identity: male Do you feel safe at home: Yes Do you feel safe in your relationship?: Yes Meds Allergies and Home Medications Allergies Allergy/AdvReac Type Severity Reaction Status Date / Time No Known Allergies Allergy Unverified 03/31/21 03:29 Home Medications Medication Instructions Recorded Confirmed Type Unknown [No Known Home Meds] 03/31/21 03/31/21 History Exam Cardio Rate: regular rate Rhythm: regular rhythm GI Other: large left sided per-rectal abscess scarring noted from prior Dx. Results Labs Result diagrams: 03/31/21 03:40 03/31/21 03:40 Labs: Laboratory Results - last 24 hr 03/31/21 03/31/21 03/31/21 03:30 03:40 03:40 WBC RBC Hgb Hct MCV MCH MCHC RDW Plt Count MPV Immature Gran % Neutrophils % Lymphocytes % Monocytes % Eosinophils % Basophils % Nucleated RBC % Absolute Neutrophils Absolute Lymphocytes Absolute Monocytes Absolute Eosinophils Absolute Basophils RBC Morphology VBG Lactate 0.6 Sodium 141 Potassium 3.9 Chloride 106 Carbon Dioxide 26.8 Anion Gap 8.2 BUN 14 Creatinine 0.8 Estimated GFR/1.73 m2 >= 60.00 Glucose 119 H Calcium 8.6 Total Bilirubin 0.5 AST 11 L ALT 19 Alkaline Phosphatase 75 Total Protein 7.6 Albumin 3.3 L Urine Color Yellow Urine Clarity Sl Cloudy Urine pH 6.0 Ur Specific [place] >= 1.030 H Urine Protein 30 H Urine Ketones Trace H Urine Blood Large H Urine Nitrite Negative Urine Bilirubin Negative Urine Urobilinogen 0.2 Ur Leukocyte Esterase Negative Urine RBC 10-20 H Urine WBC 0-2 Ur Epithelial Cells Negative Urine Crystals Negative Urine Bacteria Rare Urine Casts 0-2 Hyaline Urine Mucus Moderate Ur Culture Indicated? No Urine Glucose Negative COVID-19 Source SARS-CoV-2 (PCR) 03/31/21 03/31/21 03:40 03:43 WBC 14.81 H RBC 4.60 Hgb 14.4 Hct 43.1 MCV 93.7 MCH 31.3 MCHC 33.4 RDW 12.1 Plt Count 208 MPV 9.9 Immature Gran % 0.3 Neutrophils % 72.3 Lymphocytes % 13.6 Monocytes % 12.8 Eosinophils % 0.7 Basophils % 0.3 Nucleated RBC % 0 Absolute Neutrophils 10.71 H Absolute Lymphocytes 2.01 Absolute Monocytes 1.90 H Absolute Eosinophils 0.10 Absolute Basophils 0.04 RBC Morphology Normal VBG Lactate Sodium Potassium Chloride Carbon Dioxide Anion Gap BUN Creatinine Estimated GFR/1.73 m2 Glucose Calcium Total Bilirubin AST ALT Alkaline Phosphatase Total Protein Albumin Urine Color Urine Clarity Urine pH Ur Specific [place] Urine Protein Urine Ketones Urine Blood Urine Nitrite Urine Bilirubin Urine Urobilinogen Ur Leukocyte Esterase Urine RBC Urine WBC Ur Epithelial Cells Urine Crystals Urine Bacteria Urine Casts Urine Mucus Ur Culture Indicated? Urine Glucose COVID-19 Source Nasal/Nares SARS-CoV-2 (PCR) Negative Last Vital Signs Temp 36.8 C 03/31/21 08:39 Pulse 82 03/31/21 08:39 Resp 16 03/31/21 08:39 BP 153/92 H 03/31/21 08:39 Pulse Ox 95 03/31/21 08:39
--- NOTE | 2021-03-31 14:06 | W.ANESPRE ---
General Info Height: 6 ft Weight: 99.79 kg Body Mass Index (BMI): 29.8 Surgical Procedure: Operation Date: 03/31/21 14:55 Proposed Procedures Side Surgeon p Excision-Sallie Rectal Abscess Sheyla Livingston DO Meds Allergies and Home Medications Allergies Allergy/AdvReac Type Severity Reaction Status Date / Time No Known Allergies Allergy Unverified 03/31/21 03:29 Home Medication Medication Instructions Recorded Unknown [No Known Home Meds] 03/31/21 Current Visit Medications: Current Medications Generic Name Dose Route Start Last Admin Trade Name Freq PRN Reason Stop Dose Admin Acetaminophen 1,000 mg 03/31/21 08:00 03/31/21 14:01 Acetaminophen 500 Mg Tab PO 1,000 mg Q6H JESSI Administration Hydromorphone HCl 0.5 mg 03/31/21 07:49 Hydromorphone 2 Mg/Ml Vial IVP Q3H PRN PRN Sodium Chloride 500 mls @ 0 mls/hr 03/31/21 07:49 Saline 500ml Bag IV PRN PRN As Directed Sodium Chloride 1,000 mls @ 125 mls/hr 03/31/21 08:00 03/31/21 09:23 Saline 1000ml Bag IV 125 mls/hr INFUSION JESSI Administration Piperacillin Sod/Tazobactam 50 mls @ 100 mls/hr 03/31/21 10:00 03/31/21 10:00 Sod 3.375 gm/ Sodium Chloride IVPB Infused Q6H JESSI Infusion Protocol IV Miscellaneous Supplies 1 each 03/31/21 08:00 Iv Access IV DIRECTED JESSI Ondansetron HCl 4 mg 03/31/21 07:49 Ondansetron 4 Mg/2 Ml Vial IVP Q4H PRN PRN Sodium Chloride 0 ml 03/31/21 07:49 Normal Saline Flush 10 Ml Syr IVP PRN PRN PFSH Active Problems Active Problems: Problem Status Onset Code Smoker F17.200 Crohn's disease (regional enteritis) K50.90 Abscess and cellulitis of gluteal region L02.31, L03.317 Medical History Medical History Crohn's disease (regional enteritis) Slalie-rectal abscess Smoker Surgical History Surgical History H/O drainage of abscess Tobacco Smoking/Tobacco Use Status: Current every day Tobacco Type: cigarettes Smoking packs per day: 1 Alcohol Alcohol Intake: current Alcohol intake frequency: a few times a week Alcohol type: beer and hard liquor Substance Use Substance use: Never Substance use type: does not use Vital Signs and Lab Results Vital Signs Most Recent Vital Signs in EMR: Most Recent Vital Signs Temp Pulse Resp BP Pulse Ox 36.8 C 82 16 153/92 H 95 03/31/21 08:39 03/31/21 08:39 03/31/21 08:39 03/31/21 08:39 03/31/21 08:39 Lab Results Result Diagrams: 03/31/21 03:40 03/31/21 03:40 Blood Type / Crossmatch: No Data to Display Complete Blood Count: White Blood Count 14.81 10^3/uL (4.4-10.8) H 03/31/21 03:40 03/31/21 Red Blood Count 4.60 10^6/uL (4.36-5.78) 03/31/21 03:40 03/31/21 Hemoglobin 14.4 g/dL (13.5-17.5) 03/31/21 03:40 03/31/21 Hematocrit 43.1 % (40.0-50.0) 03/31/21 03:40 03/31/21 Platelet Count 208 10^3/uL (130-400) 03/31/21 03:40 03/31/21 Venous Blood Lactate 0.6 mmol/L (0.6-1.4) 03/31/21 03:40 03/31/21 Complete Metabolic Panel: Sodium Level 141 mmol/L (136-145) 03/31/21 03:40 03/31/21 Potassium Level 3.9 mmol/L (3.5-5.1) 03/31/21 03:40 03/31/21 Chloride Level 106 mmol/L (98-107) 03/31/21 03:40 03/31/21 Carbon Dioxide Level 26.8 mmol/L (21.0-32.0) 03/31/21 03:40 03/31/21 Blood Urea Nitrogen 14 mg/dL (7-18) 03/31/21 03:40 03/31/21 Creatinine 0.8 mg/dL (0.70-1.30) 03/31/21 03:40 03/31/21 Estimated GFR/1.73 m2 >= 60.00 (mL/min/1.73m2) 03/31/21 03:40 03/31/21 Calcium Level 8.6 mg/dL (8.5-10.1) 03/31/21 03:40 03/31/21 Albumin 3.3 g/dL (3.4-5.0) L 03/31/21 03:40 03/31/21 Glucose Level 119 mg/dL (74-106) H 03/31/21 03:40 03/31/21 Liver Function Panel: Alanine Aminotransferase (ALT/SGPT) 19 U/L (16-63) 03/31/21 03:40 03/31/21 Aspartate Amino Transf (AST/SGOT) 11 U/L (15-37) L 03/31/21 03:40 03/31/21 Coagulation Panel: No Data to Display Cardiac Panel: No Data to Display Arterial Blood Gas: No Data to Display Venous Blood Gas: No Data to Display Pancreas Panel: No Data to Display Thyroid Panel: No Data to Display Infectious Disease: Coronavirus (COVID-19)(PCR) Negative (Negative) 03/31/21 03:43 03/31/21 Coronavirus 2019 Source Nasal/Nares 03/31/21 03:43 03/31/21 Blood Cultures: No Data to Display Toxicology Panel: No Data to Display Anesthesia Assessment and Plan Anesthesia History Personal History: No History of Anesthesia Complications Family History: No Family History of Anesthesia Complications Exercise Tolerance Exercise Tolerance: Metabolic Equivalents>4 Pertinent Negatives Pertinent Negatives: No Symptoms of GERD, No Major Cardiovascular Symptoms or Complaints, No Major Pulmonary Symptoms or Complaints and No History of CVA/TIA Cardiac & Pulmonary Exam Cardiac Exam: Normal S1/S2 Heart Sounds Pulmonary Exam: Clear Bilateral Breath Sounds Airway Exam Known Difficult Airway: No Mallampati Class: 2 Mouth Opening: Normal (> 3cm) Thyromental Distance: Greater than 3 cm Neck Range of Motion: Full ROM Neck Circumference: Normal Teeth Condition: Normal Dentition ASA Classification ASA Score: ASA 2 Emergency Case?: No NPO Status NPO Status: NPO Clears >2 hours, Solids >8 hours Anesthesia Plan Resuscitation Status: Full Code Anesthesia Technique: Spinal Anesthesia Airway Planned: Natural Airway Monitors Used: Standard Monitors
--- NOTE | 2021-04-01 17:43 | W.PM.DS.N ---
Date of service: 03/31/21 Time of Service: 17:44 DS: Diagnosis Discharge Diagnosis (1) Smoker: Status: Acute (2) Crohn's disease (regional enteritis): Status: Chronic (3) Abscess and cellulitis of gluteal region: Status: Acute Discharge Plan Disposition Patient Disposition: AGAINST MEDICAL ADVICE Condition: Stable Discharge Details Reason For Visit: Rectal Abcess/Crohn's Admit Date/Time: 03/31/21 07:49 Admit Provider: Sheyla Livingston Attending Provider: Sheyla Livingston Primary Care Provider: Rafat Tellez Hospital Course Hospital Course: pt left ama Home Meds and New Rx's Prescriptions: No Action No Known Home Meds RF: 0 Discharge Orders Discharge Orders: Discharge Order (Routine); Ordered 04/01/21 Ordered By: Sheyla Livingston Discharge Data Discharge Date/Time-TO BE ENTERED AT DEPARTURE: 03/31/21 14:53 DS: Summary Time Spent with Patient providing and/or coordinating discharge services: Less than 30 minutes Status at Discharge Functional status at discharge: independent ambulation Overall status at discharge: other Mental Status: other Speech and Movement: agitated Mood: irritable mood and other Affect: hostile Exam Psych Mental Status: other Speech and Movement: agitated Mood: irritable mood and other Affect: hostile DS: Data Vitals/I&O Vitals and I&O: Vital Signs Temperature 36.8 C 03/31/21 08:39 Temperature Source Oral 03/31/21 03:14 Pulse 82 03/31/21 08:39 Pulse Rhythm Regular 03/31/21 08:39 Respiratory Rate 16 03/31/21 08:39 Respiratory Effort Non-Labored 03/31/21 08:39 Respiratory Depth Normal 03/31/21 08:39 Respiratory Pattern Normal 03/31/21 08:39 Blood Pressure 153/92 H 03/31/21 08:39 Blood Pressure Position Supine 03/31/21 03:14 Pulse Oximetry 95 03/31/21 08:39 Oxygen Delivery Method Room Air 03/31/21 08:39 Oxygen Flow Rate 0 03/31/21 08:39 Pain Level 6 03/31/21 09:20 Data Completed and Pending Labs on day of discharge: Preliminary micro results at discharge 03/31/21 04:20 Blood Culture - Preliminary Blood NO GROWTH 24 HOURS PFSH Medical History Crohn's disease (regional enteritis) Sallie-rectal abscess Smoker Surgical History H/O drainage of abscess Social History Smoking/Tobacco Use Status: Current every day Tobacco Type: cigarettes Smoking packs per day: 1 Smoking cigarettes per day: 20.0 Smoking risk assessment performed?: Yes Alcohol Intake: current Alcohol Intake frequency: a few times a week Alcohol type: beer and hard liquor Drug use: Never Substance use type: does not use Current gender identity: male Do you feel safe at home: Yes Do you feel safe in your relationship?: Yes
== END 2021-03-31 14:53 | disposition left against medical advice (07) | DRG 603 ==
LOC: ER 08:11 → MS 08:36
PROVIDERS: Admitting Provider Surgery; Emergency Provider Emergency Medicine; PCP Family Medicine; Visit Provider Surgery
DX: L02.31 Cutaneous abscess of buttock (principal); K50.90 Crohn's disease, unspecified, without complications; Z53.20 Procedure and treatment not carried out because of patient's decision for unspecified reasons; Z20.822 Contact with and (suspected) exposure to COVID-19; Z03.818 Encounter for observation for suspected exposure to other biological agents ruled out
CPT/HCPCS: 36415; 80053; 87040; 87635; 96361; 96365; 96367; 96375; 99285; 74177; 81003; 81015; 83605; 85025; 99284; J1885; J2543; J3490

== ENCOUNTER 2022-07-02 20:52 | Emergency (ER) | payer BC, SELFPAY ==
[2022-07-02 20:58] VITALS: BP 158/103; PULSE 103; RESP 16; TEMP 36.8; O2SAT 95
[2022-07-02] MEDS: Dexamethasone 10 MG/ML VIAL IVP (21:28)
[2022-07-02] MEDS: HYDROmorphone 2 MG/ML SYR 1 MG IVP ×4 (21:29→23:11)
--- NOTE | 2022-07-02 21:38 | W.ED.GENAD ---
Discharge Plan Disposition Patient Disposition: Home Condition: Stable Discharge Details Clinical Impression: Acute left lumbar radiculopathy, Hematuria Primary Care Provider: Fabien Nino ED Provider: Yulia Cheek Home Meds and New Rx's Prescriptions: New prednisone 20 mg tablet 40 mg PO ONCE Qty: 10 0RF oxycodone 5 mg capsule 5 mg PO Q8H PRNQty: 10 0RF cyclobenzaprine 10 mg tablet 10 mg PO TID PRNQty: 10 0RF Discharge Instructions Additional Instructions: Take prednisone as prescribed Take Flexeril as needed for musculoskeletal pain Below you will need to take the oxycodone as needed for discomfort Do not drive for 8 hours after taking this medication as it may make you drowsy Recommend following up with your doctor as you may need an outpatient MRI should your symptoms persist or worsen Please return immediately should you have changes in bowel or bladder, or with any new or worsening plaints Referrals: Fabien Nino [Primary Care Provider] - Discharge Data Discharge Date/Time-TO BE ENTERED AT DEPARTURE: 07/03/22 00:34 Medical Decision Making This 37-year-old male presents with history of back pain rating down his left lower extremity, he has had paresthesias to his left foot and leg, he denies any changes in bowel or bladder. He denies any fever or chills. He denies any hematuria or dysuria Denies any changes in bowel or bladder, states he had similar pain in the past so we will treat for musculoskeletal back pain, no obvious indication for emergent MRI There was a delay in obtaining urine specimen and bladder scan was obtained, 180 cc, patient will attempt to give urine specimen Low suspicion clinically for cauda equina syndrome, discitis, epidural abscess based on exam findings and history Patient was offered admission secondary to receiving numerous doses of opiate pain medication, he has declined, he is ambulatory with antalgic although steady gait fully alert, oriented, and of decisional capacity His exam is essentially nonfocal aside from some paresthesias to his left lower extremity Medical Records Medical records reviewed: Yes I reviewed the patient's medical records. Lab Data Lab results reviewed: Yes I reviewed the patient's lab results. HPI General Date/Time Provider Initiated Documentation: 07/02/22 20:54. HPI Narrative: This 57-year-old male presents with report of back pain for the past 5 days. 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 He now has pain in his lumbar spine that radiates down his left leg, into his glutes and down his left leg, states he has had paresthesias to his left lower extremity. He denies any changes in bowel or bladder. Denies any fever or chills. Does have a history of Crohn's disease but is not on any immunosuppressive's. States the pain is exacerbated with lifting his leg. Denies urinary frequency or hematuria. States this is the same pain that he has had on several occasions in the past and is typical for his back pain. Related Data Home Medications Medication Instructions Recorded Confirmed cyclobenzaprine 10 mg tablet 10 mg PO TID PRN #10 tabs 07/02/22 oxycodone 5 mg capsule 5 mg PO Q8H PRN #10 caps 07/02/22 prednisone 20 mg tablet 40 mg PO ONCE #10 tabs 07/02/22 Previous Rx's Medication Instructions Recorded cyclobenzaprine 10 mg tablet 10 mg PO TID PRN #10 tabs 07/02/22 oxycodone 5 mg capsule 5 mg PO Q8H PRN #10 caps 07/02/22 prednisone 20 mg tablet 40 mg PO ONCE #10 tabs 07/02/22 Allergies Allergy/AdvReac Type Severity Reaction Status Date / Time No Known Allergies Allergy Unverified 07/02/22 21:03 General Stated Complaint: Nk/Back Pain FLORA: 3 PFSH All Active Problems (Updated 07/03/22 @ 00:30 by Antwan Torrez DO) Acute left lumbar radiculopathy (Acute) Hematuria (Acute) Smoker (Acute) Crohn's disease (regional enteritis) (Chronic) Abscess and cellulitis of gluteal region (Acute) left Medical History (Updated 07/03/22 @ 00:30 by Antwan Torrez DO) Sallie-rectal abscess Surgical History H/O drainage of abscess Social History Smoking/Tobacco Use Status: Current every day Tobacco Type: cigarettes Smoking packs per day: 1 Smoking cigarettes per day: 20.0 Smoking risk assessment performed?: Yes Alcohol Intake: current Alcohol Intake frequency: 0-2 drinks per day Alcohol type: beer and hard liquor Drug use: Never Substance use type: does not use Current gender identity: male Do you feel safe at home: Yes Do you feel safe in your relationship?: Yes Exam Const General: cooperative, comfortable and no acute distress Resp Effort & Inspection: normal respiratory effort Auscultation: clear to auscultation bilaterally Cardio Rate: regular rate Rhythm: regular rhythm Other: distal pulses intact GI Inspection: normal to inspection Other: no abdominal bruit or pulsatile mass no cva tenderness Back/Spine/Pelvis Back: no CVA tenderness Back/spine/pelvis image: 1. tenderness no midline Skin General skin exam: no rashes or lesions noted Neuro General: patient alert, patient oriented x3 and CN's II-XI intact bilaterally Cranial Nerves: CN's II-XI intact bilaterally and tongue midline Cognition: normal cognition Speech: speech normal Motor: strength 5/5 throughout Other: negative SLR neg babinski Extrem Other: distal pulses intact Course Vital Signs Vital signs: Vital Signs Temperature 36.8 C 07/02/22 20:58 Pulse 103 H 07/02/22 20:58 Respiratory Rate 16 07/02/22 20:58 Blood Pressure 158/103 H 07/02/22 20:58 Pulse Oximetry 95 07/02/22 20:58 Temperature 36.8 C 07/02/22 20:58 Temperature Source Oral 07/02/22 20:58 Pulse 103 H 07/02/22 20:58 Respiratory Rate 16 07/02/22 20:58 Respiratory Effort 07/02/22 20:58 Blood Pressure 158/103 H 07/02/22 20:58 Blood Pressure Position Sitting 07/02/22 20:58 Pulse Oximetry 95 07/02/22 20:58 Pain Level 5 07/02/22 21:29
[2022-07-02] MEDS: Orphenadrine 60 MG/2 ML VIAL IVP (22:01)
[2022-07-02] MEDS: oxyCODONE 10 MG TAB PO (22:40)
--- NOTE | 2022-07-02 23:26 | NUR.NOTE ---
Nursing Note:Pt bladder scanned, 186ml, reported to provider.
[2022-07-03 00:14] LABS: Bilirubin Negative (Negative); Blood Moderate (Negative); Clarity Clear (Clear); Glucose Negative (Negative); Ketones Negative (Negative); Leukocyte Esterase Negative (Negative); Nitrite Negative (Negative); Specific Gravity >= 1.030 (1.005-1.025); Urobilinogen 0.2 EU/dL (Up TO 0.2); pH 6.5 (5-8)
[2022-07-03 00:20] LABS: Bacteria Few HPF (Negative); C & S Indicated? No; Casts Negative LPF (Negative); Crystals Negative HPF (Negative); Epithelial Cells Few HPF (Negative); Mucus Negative (Negative); WBC 0-2 HPF (0-5)
--- NOTE | 2022-07-03 00:28 | ED.PROG_ITS ---
Date of service: 07/03/22 Time of Service: 00:29 Medical Decision Making Patient was signed out to me pending urinalysis. Please refer to Yulia Cheek, JENNIFER, physical exam, assessment and plan. Patient's urinalysis has returned and there is a mild to moderate amount of blood noted in it. No evidence of infec tion. No leuk esterase or nitrites. Of note the patient's previous urinalyses over the last 2 years of all had a similar amount of blood noted in them. Discussed the potential etiologies that could have caused this, including kidney stone, interstitial cystitis, and other causes. We discussed CT imaging and labs, but the patient has declined these at this time and is requesting to go home. Patient appears stable. No signs of an acute surgical abdomen. Patient understands the risks and benefits of the current decision. Family is at bedside. I have recommended to the patient that he return at a later time if his pain persist for further imaging and labs. I have extensively reviewed the treatment plan and discharge instructions with the patient and their family. I have addressed all patient concerns at this time. The patient and family was made aware of what symptoms to monitor for that would warrant a return to the emergency department. Discussed the plan with the patient and family, they demonstrate verbal understanding and agreement with our assessment and plan at this time. The documentation in this chart was dictated using [employer] dictation software. Please excuse any dictation errors. Discharge Plan Disposition Patient Disposition: Home Condition: Stable Discharge Details Clinical Impression: Acute left lumbar radiculopathy, Hematuria Primary Care Provider: Fabien Nino ED Provider: Yulia Cheek Home Meds and New Rx's Prescriptions: New prednisone 20 mg tablet 40 mg PO ONCE Qty: 10 0RF oxycodone 5 mg capsule 5 mg PO Q8H PRNQty: 10 0RF cyclobenzaprine 10 mg tablet 10 mg PO TID PRNQty: 10 0RF Discharge Instructions Additional Instructions: Take prednisone as prescribed Take Flexeril as needed for musculoskeletal pain Below you will need to take the oxycodone as needed for discomfort Do not drive for 8 hours after taking this medication as it may make you drowsy Recommend following up with your doctor as you may need an outpatient MRI should your symptoms persist or worsen Please return immediately should you have changes in bowel or bladder, or with any new or worsening plaints Referrals: Fabien Nino [Primary Care Provider] -
== END 2022-07-03 00:34 | disposition home or self-care (01) ==
PROVIDERS: Emergency Provider Physician Assistant; PCP Physician Assistant Medical
DX: M54.16 Radiculopathy, lumbar region (principal); R31.9 Hematuria, unspecified; X50.1XXA Overexertion from prolonged static or awkward postures, initial encounter
CPT/HCPCS: 80053; 96374; 96375; 96376; 99284; J2360; 81003; 81015; 85025; J1100; J1170